=== PATIENT | female | born 1955 | race Caucasian/White ===

== ENCOUNTER 2020-05-26 08:45 | Day surgery (SDC) | payer BC ==
[~2020-05-26 08:45] MED LIST: Cefuroxime 10 MG/ML SYRINGE EYERT SCH; Lidocaine 1% PF 2 ML SDV INJECT SCH; Pilocarpine 4% Ophth Soln 15 ML Bot EYERT SCH
[2020-05-26] MEDS: Polymyxin B/Trimethoprim 10 ML Bottle EYERT SCH ×3 (09:23→11:11)
[2020-05-26] MEDS: Brimonidine 0.2% Ophth Soln 5 ML Bottle EYERT SCH ×3 (09:30→11:10)
[2020-05-26] MEDS: Phenylephrine 2.5% Ophth Soln 15 ML Bot EYERT SCH ×5 (09:35→10:45)
[2020-05-26] MEDS: Tropicamide 1% Ophth Soln 15 ML Bottle EYERT SCH ×4 (09:40→10:29)
--- NOTE | 2020-05-26 10:05 | PCM.PREANE ---
Preanesthetic Assessment - Procedure Proposed Procedure: Right eye cataract extraction with IOL - Anesthesia/Transfusion/Family Hx Anesthesia History: Prior Anesthesia Without Reaction Family History of Anesthesia Reaction: No Transfusion History: No Prior Transfusion(s) - Review of Systems General: No Symptoms Pulmonary: No Symptoms Cardiovascular: Dyspnea on Exertion Gastrointestinal: No Symptoms Neurological: No Symptoms Other: Reports: Easy Bleeding, Easy Bruising - Physical Assessment NPO Status Date: 05/25/20 NPO Status Time: 00:00 Vital Signs: Last Vital Signs Temp 36.7 C 05/26/20 09:10 Pulse 71 05/26/20 09:10 Resp 16 05/26/20 09:10 BP 141/80 H 05/26/20 09:10 Pulse Ox 96 05/26/20 09:10 Height: 1.6 m Weight: 81.647 kg ASA Class: 2 Mental Status: Alert & Oriented x3 Airway Class: Mallampati = 1 Dentition: Reports: Normal Dentition, Tappen(s) Thyro-Mental Finger Breadths: 3 Mouth Opening Finger Breadths: 3 ROM/Head Extension: Full Lungs: Clear to Auscultation, Normal Respiratory Effort Cardiovascular: Regular Rate, Regular Rhythm - Allergies Allergies/Adverse Reactions: Allergies Allergy/AdvReac Type Severity Reaction Status Date / Time No Known Allergies Allergy Verified 05/25/20 10:06 - Blood Blood Available: No Product(s) Available: None - Anesthesia Plan Pre-Op Medication Ordered: None - Acknowledgements Anesthesia Type Planned: MAC Pt an Appropriate Candidate for the Planned Anesthesia: Yes Alternatives and Risks of Anesthesia Discussed w Pt/Guardian: Yes Pt/Guardian Understands and Agrees with Anesthesia Plan: Yes PreAnesthesia Questionnaire - SUBSTANCE USE Tobacco Use Status *Q: Never Tobacco User Tobacco Use Within Last Twelve Months: No Second Hand Smoke Exposure: No Days Per Week of Alcohol Use: 1 Number of Drinks Per Day: 0 Total Drinks Per Week: 0 Recreational Drug Use History: No - HOME MEDS Home Medications: Home Meds Calcium Carb, Citrate/Vit D3 [Calcium + D3 ER Tablet] 1 tab PO DAILY 05/25/20 [History] Multivitamin [Daily-Asia] 1 tab PO DAILY 05/25/20 [History] Rosuvastatin [Crestor] 10 mg PO DAILY 05/25/20 [History] Vit C/E/Zn/Coppr/Lutein/Zeaxan [Preservision Areds 2 Softgel] 1 cap PO DAILY 05/25/20 [History] lisinopriL [Lisinopril] 10 mg PO DAILY 05/25/20 [History] - CURRENT (IN HOUSE) MEDS Current Meds: Current Medications Brimonidine Tartrate (Alphagan 0.2% Ophth Soln) 0 ml EYERT ASDIRECTED JASWANT Stop: 05/26/20 18:00 Last Admin: 05/26/20 09:30 Dose: 1 drop Documented by: Cefuroxime Sodium (Zinacef) 0 mg EYERT ASDIRECTED JASWANT Stop: 05/26/20 18:00 Lidocaine HCl (Xylocaine-Mpf 1%) 0 ml INJECT ASDIRECTED JASWANT Stop: 05/26/20 18:00 Phenylephrine HCl (Wallace-Synephrine 2.5% Ophth Soln) 0 ml EYERT ASDIRECTED JASWANT Stop: 05/26/20 18:00 Last Admin: 05/26/20 09:50 Dose: 1 drop Documented by: Pilocarpine HCl (Pilocar 4% Ophth Soln) 0 ml EYERT ASDIRECTED JASWANT Stop: 05/26/20 18:00 Polymyxin/Trimethoprim Sulfate (Polytrim Ophth Soln) 0 ml EYERT ASDIRECTED JASWANT Stop: 05/26/20 18:00 Last Admin: 05/26/20 09:23 Dose: 1 drop Documented by: Tetracaine HCl (Tetracaine 0.5% Steri-Unit Irma) 0 ml EYEBOTH ASDIRECTED JASWANT Stop: 05/26/20 18:00 Tropicamide (Mydriacyl 1% Ophth Soln) 0 ml EYERT ASDIRECTED JASWANT Stop: 05/26/20 18:00 Last Admin: 05/26/20 09:55 Dose: 1 drop Documented by:
[2020-05-26] MEDS: Tetracaine HCl/PF 0.5% 4 ML Bottle EYEBOTH SCH ×2 (10:38→11:55)
--- NOTE | 2020-05-26 11:01 | PCM48HPAN ---
Post Anesthesia Note - EVALUATION WITHIN 48HRS OF ANESTHETIC Vital Signs: Last Vital Signs Temp 36.7 C 05/26/20 09:10 Pulse 71 05/26/20 09:10 Resp 16 05/26/20 09:10 BP 141/80 H 05/26/20 09:10 Pulse Ox 96 05/26/20 09:10
--- NOTE | 2020-05-26 11:09 | PCM48HPAN ---
Post Anesthesia Note - EVALUATION WITHIN 48HRS OF ANESTHETIC Vital Signs in Normal Range: Yes Patient Participated in Evaluation: Yes Respiratory Function Stable: Yes Airway Patent: Yes Cardiovascular Function Stable: Yes Hydration Status Stable: Yes Pain Control Satisfactory: Yes Nausea and Vomiting Control Satisfactory: Yes Mental Status Recovered: Yes Vital Signs: Last Vital Signs Temp 36.7 C 05/26/20 09:10 Pulse 71 05/26/20 09:10 Resp 16 05/26/20 09:10 BP 141/80 H 05/26/20 09:10 Pulse Ox 96 05/26/20 09:10
== END 2020-05-26 11:24 | disposition home or self-care (01) ==
LOC: JD.SDS 08:45
PROVIDERS: ATTEND Ophthalmology
DX: H25.811 Combined forms of age-related cataract, right eye (principal); E78.00 Pure hypercholesterolemia, unspecified; H31.091 Other chorioretinal scars, right eye; S05.72XA Avulsion of left eye, initial encounter; H02.834 Dermatochalasis of left upper eyelid; H02.831 Dermatochalasis of right upper eyelid; H16.103 Unspecified superficial keratitis, bilateral; H16.223 Keratoconjunctivitis sicca, not specified as Sjogren's, bilateral; Z79.899 Other long term (current) drug therapy
CPT/HCPCS: 66984; C1780; J0697; J2001

== ENCOUNTER 2021-01-28 17:01 | Emergency (ER) | payer BC ==
--- NOTE | 2021-01-28 18:31 | EDM.PDOC ---
<Rip Hall Naty - Last Filed: 01/28/21 19:50> ED HPI GENERAL MEDICAL PROBLEM - General Chief Complaint: Respiratory Problem Stated Complaint: COUGH Time Seen by Provider: 01/28/21 18:30 Source of Information: Reports: Patient, RN Notes Reviewed - History of Present Illness INITIAL COMMENTS - FREE TEXT/NARRATIVE: 65 yr old female with onset of cough, chills, low grade fever about 5 days ago. The cough has worsened over the last few days and now becoming more short of breath. Has had myalgias, mild diarrhea. Cough has been nonproductive. She has not been vaccinated. no known underlying conditions. No one else currently ill at home. Does not smoke. - Related Data Allergies Allergy/AdvReac Type Severity Reaction Status Date / Time No Known Allergies Allergy Verified 05/25/20 10:06 Home Meds: Home Meds Rosuvastatin [Crestor] 20 mg PO DAILY 05/25/20 [History] lisinopriL [Lisinopril] 10 mg PO DAILY 05/25/20 [History] Past Medical History HEENT History: Reports: Cataract Cardiovascular History: Reports: High Cholesterol, Hypertension Social & Family History - Tobacco Use Tobacco Use Status *Q: Never Tobacco User Second Hand Smoke Exposure: No - Caffeine Use Caffeine Use: Reports: None - Recreational Drug Use Recreational Drug Use: No ED ROS GENERAL - Review of Systems Review Of Systems: See Below Constitutional: Reports: Fever, Chills HEENT: Reports: Rhinitis Respiratory: Reports: Shortness of Breath, Cough Endocrine: Reports: Fatigue GI/Abdominal: Reports: Diarrhea, Decreased Appetite. Denies: Abdominal Pain, Nausea, Vomiting Musculoskeletal: Reports: Other (generalized achiness) Skin: Denies: Rash Neurological: Reports: Dizziness ED EXAM, GENERAL - Physical Exam Exam: See Below General Appearance: Alert, Mild Distress Head: Atraumatic Neck: Supple Respiratory/Chest: No Respiratory Distress, Lungs Clear, Normal Breath Sounds. No: Rhonchi, Wheezing Cardiovascular: Regular Rate, Rhythm Back Exam: No: CVA Tenderness (L), CVA Tenderness (R) Neurological: Alert, Oriented, No Motor/Sensory Deficits Skin Exam: Warm, Dry, Normal Color, No Rash Course - Re-Assessments/Exams Free Text/Narrative Re-Assessment/Exam: 01/28/21 19:42 CXR shows mild bilat infiltrate compatable with covid. Covid screen has come back positive. ABG's confirm hypoxia with p02 of 57. Remainder of labs pending. It is well after change of shift. Will transfer care to Dr Calix. She is now on oxygen at 2 L NC and sats currently 92 -94 %. Departure - Departure Disposition: Home, Self-Care 01 Clinical Impression: COVID-19, Pneumonia due to COVID-19 virus, Hypoxia - Discharge Information Referrals: Eduarda Marin, [facility] [Primary Care Provider] - 1 Week Forms: ED Department Discharge Additional Instructions: Wear the oxygen at 2L continuously. Take the dexamethasone 1.5pill daily until gone. Take tylenol or motrin for any fever. Drink plenty of fluids. Follow up with Eduarda Marin within a week. Please return if you are worse. <Girish Calix - Last Filed: 01/29/21 02:02> #1 Interpretation EKG Date: 01/28/21 Time: 19:06 Rhythm: NSR Rate (Beats/Min): 81 Duncan: Normal P-Wave: Enlarged (LAE) QRS: Normal ST-T: Normal QT: Normal Comparison: NA - No Prior EKG Course - Re-Assessments/Exams Free Text/Narrative Re-Assessment/Exam: 01/28/21 20:[address] Hall for change of shift. I agree with his history and physical examination as documented. As above, the patient's swab for the SARS-CoV-2 virus has returned positive. She is hypoxemic, with a history suggesting symptomatic illness for approximately 5 or 6 days. This would qualify her for both dexamethasone and remdesivir, although not Regen-Cov. I have ordered these. Due to the patient's hypoxemia, the patient will need to be admitted to the hospital. Notified by Honey GARCIA that we do not have any beds available at this facility. I will wait until all of her labs have returned before calling [facility]. 01/28/21 22:13 Test results discussed with the patient. Her CBC is remarkable for leukopenia of 3.65, and a modestly depressed H/H at 9.9/30.3, with remainder of her CBC being unremarkable. Her CMP is remarkable for mild hyponatremia of 133, a BUN/Cr elevated at 29/1.8, and mild hyperglycemia of 115, with remainder of her CMP being unremarkable. Her CRP is mildly elevated at 2.1. Her troponin is undetectably low. Her pro-BNP is within normal limits at 84. Her ABG demonstrates a primary respiratory alkalosis with secondary metabolic acidosis and additional metabolic alkalosis. View of prior labs finds that the patient's BUN/Cr were 24/1.1 on 06/07/2020. Because of the patient's hypoxemia, I am recommending admission to the hospital. Unfortunately, there are no beds available at this facility. We will endeavor to find a bed at an outside facility. The patient is agreeable. 01/28/21 23:21 Called by Rosa at [facility] at 23:19. They have been extremely busy, and noted that [facility] is on diversion. She believes that they can accept the patient, however, she will need to make some arrangements. She will call us back in an hour. 01/29/21 01:40 Notified by Honey GARCIA that Rosa called back and informed her that, unfortunately, they are unable to accept the patient tonight. They are hoping to have some bed availability tomorrow. We contacted [facility] to see if they might have a bed available, and, unfortunately, they do not. 01/29/21 02:04 If the patient required an ICU bed, then I would begin looking for a bed wherever we could find one, however, the patient does not require an ICU bed; she only needs a general medical bed at this time. Given the high cost of flying, I do not believe that it would be prudent to fly the patient. I discussed this with the patient, and she agrees. The plan will be to keep the patient here in the ED tonight and look for bed availability in the morning. Departure - Discharge Information *PRESCRIPTION DRUG MONITORING PROGRAM REVIEWED*: Not Applicable *COPY OF PRESCRIPTION DRUG MONITORING REPORT IN PATIENT CATHERINE: Not Applicable <Sami Workman - Last Filed: 01/29/21 09:29> Course - Vital Signs Last Recorded V/S: Last Vital Signs Temp 98.1 F 01/28/21 18:24 Pulse 85 01/28/21 18:24 Resp 20 01/28/21 18:24 BP 115/61 01/28/21 18:24 Pulse Ox 90 L 01/28/21 18:24 - Orders/Labs/Meds Orders: Active Orders 24 hr Category Date Time Status Peripheral IV Care [RC] . DIRECTED Care 01/28/21 18:51 Active Sodium Chloride 0.9% [Saline Flush] Med 01/28/21 18:51 Active 10 ml FLUSH ASDIRECTED PRN Peripheral IV Insertion Adult [OM.PC] Stat Oth 01/28/21 18:51 Ordered Medication Orders Sodium Chloride (Sodium Chloride 0.9% 10 Ml Syringe) 10 ml FLUSH ASDIRECTED PRN PRN Reason: Keep Vein Open Last Admin: 01/28/21 20:18 Dose: 10 ml Documented by: FIDEL Labs: Laboratory Tests 01/28/21 01/28/21 01/28/21 Range/Units 18:20 18:50 20:00 WBC (3.98-10.04) K/mm3 RBC (3.98-5.22) M/mm3 Hgb (11.2-15.7) gm/dl Hct (34.1-44.9) % MCV (79.4-94.8) fl MCH (25.6-32.2) pg MCHC (32.2-35.5) g/dl RDW Std Deviation (36.4-46.3) fL Plt Count (182-369) K/mm3 MPV (9.4-12.3) fl Neut % (Auto) (34.0-71.1) % Lymph % (Auto) (19.3-51.7) % Billings % (Auto) (4.7-12.5) % Eos % (Auto) (0.7-5.8) Baso % (Auto) (0.1-1.2) % Neut # (Auto) (1.56-6.13) K/mm3 Lymph # (Auto) (1.18-3.74) K/mm3 Billings # (Auto) (0.24-0.36) K/mm3 Eos # (Auto) (0.04-0.36) K/mm3 Baso # (Auto) (0.01-0.08) K/mm3 Puncture Site Lt radial ABG pH 7.42 (7.35-7.45) ABG pCO2 30.1 L (35.0-45.0) mmHg ABG pO2 57.0 L (80.0-100.0) mmHg ABG HCO3 19.2 L (22.0-26.0) meq/L ABG O2 Saturation 85.5 L (96.0-97.0) % ABG Base Excess -4.0 L (-2-2.0) Andrew Test Positive O2 Delivery Device Room air Oxygen Flow Rate 0.0 Sodium (136-145) mEq/L Potassium (3.5-5.1) mEq/L Chloride (98-107) mEq/L Carbon Dioxide (21-32) mEq/L Anion Gap (5-15) BUN (7-18) mg/dL Creatinine (0.55-1.02) mg/dL Est Cr Clr Drug Dosing mL/min Estimated GFR (MDRD) (>60) mL/min BUN/Creatinine Ratio (14-18) Glucose (70-99) mg/dL Calcium (8.5-10.1) mg/dL Total Bilirubin (0.2-1.0) mg/dL AST (15-37) U/L ALT (14-59) U/L Alkaline Phosphatase (46-116) U/L Troponin I (0.00-0.056) ng/mL C-Reactive Protein 2.1 H* (<1.0) mg/dL NT-Pro-B Natriuret Pep (0-125) pg/mL Total Protein (6.4-8.2) g/dl Albumin (3.4-5.0) g/dl Globulin gm/dL Albumin/Globulin Ratio (1-2) SARS-CoV-2 RNA (HANK) Positive H (NEGATIVE) 01/28/21 01/28/21 01/28/21 Range/Units 20:00 20:00 20:00 WBC 3.65 L (3.98-10.04) K/mm3 RBC 3.60 L (3.98-5.22) M/mm3 Hgb 9.9 L D (11.2-15.7) gm/dl Hct 30.3 L (34.1-44.9) % MCV 84.2 D (79.4-94.8) fl MCH 27.5 (25.6-32.2) pg MCHC 32.7 (32.2-35.5) g/dl RDW Std Deviation 42.4 (36.4-46.3) fL Plt Count 214 D (182-369) K/mm3 MPV 9.3 L (9.4-12.3) fl Neut % (Auto) 79.9 H (34.0-71.1) % Lymph % (Auto) 14.0 L (19.3-51.7) % Billings % (Auto) 5.8 (4.7-12.5) % Eos % (Auto) 0 L (0.7-5.8) Baso % (Auto) 0.3 (0.1-1.2) % Neut # (Auto) 2.92 (1.56-6.13) K/mm3 Lymph # (Auto) 0.51 L (1.18-3.74) K/mm3 Billings # (Auto) 0.21 L (0.24-0.36) K/mm3 Eos # (Auto) 0.00 L (0.04-0.36) K/mm3 Baso # (Auto) 0.01 (0.01-0.08) K/mm3 Puncture Site ABG pH (7.35-7.45) ABG pCO2 (35.0-45.0) mmHg ABG pO2 (80.0-100.0) mmHg ABG HCO3 (22.0-26.0) meq/L ABG O2 Saturation (96.0-97.0) % ABG Base Excess (-2-2.0) Andrew Test O2 Delivery Device Oxygen Flow Rate Sodium 133 L D (136-145) mEq/L Potassium 4.2 (3.5-5.1) mEq/L Chloride 97 L (98-107) mEq/L Carbon Dioxide 24 (21-32) mEq/L Anion Gap 16.2 H (5-15) BUN 29 H (7-18) mg/dL Creatinine 1.8 H (0.55-1.02) mg/dL Est Cr Clr Drug Dosing 26.46 mL/min Estimated GFR (MDRD) 28 (>60) mL/min BUN/Creatinine Ratio 16.1 (14-18) Glucose 115 H (70-99) mg/dL Calcium 8.6 (8.5-10.1) mg/dL Total Bilirubin 0.5 (0.2-1.0) mg/dL AST 43 H (15-37) U/L ALT 51 (14-59) U/L Alkaline Phosphatase 54 (46-116) U/L Troponin I < 0.017 (0.00-0.056) ng/mL C-Reactive Protein (<1.0) mg/dL NT-Pro-B Natriuret Pep 84 (0-125) pg/mL Total Protein 7.7 (6.4-8.2) g/dl Albumin 3.2 L (3.4-5.0) g/dl Globulin 4.5 gm/dL Albumin/Globulin Ratio 0.7 L (1-2) SARS-CoV-2 RNA (HANK) (NEGATIVE) Meds: Medications Generic Name Dose Route Start Last Admin Trade Name Freq PRN Reason Stop Dose Admin Sodium Chloride 10 ml 01/28/21 18:51 01/28/21 20:18 Sodium Chloride 0.9% 10 Ml Syringe FLUSH 10 ml ASDIRECTED PRN Administration Keep Vein Open Discontinued Medications Generic Name Dose Route Start Last Admin Trade Name Freq PRN Reason Stop Dose Admin Dexamethasone 6 mg 01/28/21 19:56 01/28/21 20:17 Dexamethasone 10 Mg/Ml Sdv IVPUSH 01/28/21 19:57 6 mg ONETIME STA Administration Remdesivir 200 mg/ Sodium 250 mls @ 250 mls/hr 01/28/21 19:57 01/28/21 20:18 Chloride IV 01/28/21 19:58 250 mls/hr ONETIME ONE Administration - Re-Assessments/Exams Free Text/Narrative Re-Assessment/Exam: 01/29/21 09:[address] Calix who took over for Dr Hall. The patient says she feels better. She has been doing good on 2L of oxygen. 01/29/21 09:24 We have no beds available here. [facility] has no availability until later today. I talked to the patient about the possibility of going home with home oxygen and oral steroids. She would like to try that. I have ordered the oxygen. I will sent a prescription for dexamethasone to [facility]. Departure - Departure Time of Disposition: 09:30 Condition: Good
[2021-01-28] MEDS ORDERED: Sodium Chloride 0.9% 10 ML Syringe FLUSH PRN (18:51)
[2021-01-28] MEDS ORDERED: Dexamethasone 10 MG/ML SDV IVPUSH STA (19:56)
[2021-01-28] MEDS ORDERED: REMDESIVIR 200 MG in Sodium Chloride 0.9% 250 ML IV ONE (19:57)
--- NOTE | 2021-01-28 20:27 | CR ---
Chest: Portable view of the chest was obtained. Comparison: Prior chest x-ray of 06/07/20. Patchy areas of increased density are seen within the left upper lung and left lower lung as well as within the right lower lung. Heart size and mediastinum are within normal limits for portable technique. Bony structures show nothing acute. Impression: 1. Patchy areas of increased density within both sides of the chest. Findings are suspicious for COVID pneumonia. Please correlate. Diagnostic code #3
== END 2021-01-29 10:04 | disposition home or self-care (01) ==
LOC: JD.ED 17:01
DX: U07.1 COVID-19 (principal); J12.82 Pneumonia due to coronavirus disease 2019; R09.02 Hypoxemia; I10 Essential (primary) hypertension
CPT/HCPCS: 36415; 36600; 71045; 80053; 82803; 83880; 84484; 85025; 86140; 87635; 93005; 96374; 99285; J1100; J7050; U0002

== ENCOUNTER 2021-02-01 13:51 | Inpatient (IN) | payer BC ==
--- NOTE | 2021-02-01 15:56 | CR ---
Chest: Frontal view of the chest was obtained. Comparison: Prior chest x-ray of 01/28/21. Patchy areas of increased density are seen within both lungs. Findings are stable from prior chest x-ray. Heart size and mediastinum are within normal limits. Bony structures show mild degenerative spurring within the spine. Impression: 1. Stable chest x-ray from prior study of 01/28/21. Diagnostic code #3
--- NOTE | 2021-02-01 16:42 | EDM.PDOC ---
ED HPI GENERAL MEDICAL PROBLEM - General Chief Complaint: Respiratory Problem Stated Complaint: COVID+ Time Seen by Provider: 02/01/21 14:41 Source of Information: Reports: Patient History Limitations: Reports: No Limitations - History of Present Illness INITIAL COMMENTS - FREE TEXT/NARRATIVE: The patient presents with shortness of breath, cough, and generalized weakness. She started having symptoms 9 days ago and she was seen here Saturday night was going to be admitted but there were no beds. The next morning she felt a little better and wanted to try to go home with home oxygen. She was given dexamethasone and remdesivir here. She went home on dexamethasone. She returns because her and her daughter are worried because she is not getting any better. She is able to eat and drink She has some diarrhea. She has no fever or chills. She does still cough. She has shortness of breath. She is not able to eat or drink much. Onset: Gradual Duration: Day(s): (9) Severity: Moderate Improves with: Reports: None Worsens with: Reports: None Associated Symptoms: Reports: Cough, Headaches, Nausea/Vomiting, Shortness of Breath. Denies: Chest Pain, Fever/Chills - Related Data Allergies Allergy/AdvReac Type Severity Reaction Status Date / Time No Known Allergies Allergy Verified 05/25/20 10:06 Home Meds: Home Meds Rosuvastatin [Crestor] 20 mg PO DAILY 05/25/20 [History] lisinopriL [Lisinopril] 10 mg PO DAILY 05/25/20 [History] dexAMETHasone [Dexamethasone] 6 mg PO Q6H #12 tab 01/29/21 [Rx] Past Medical History HEENT History: Reports: Cataract Cardiovascular History: Reports: High Cholesterol, Hypertension - Infectious Disease History Infectious Disease History: Reports: Novel Coronavirus Social & Family History - Tobacco Use Tobacco Use Status *Q: Never Tobacco User - Caffeine Use Caffeine Use: Reports: Coffee, Tea - Recreational Drug Use Recreational Drug Use: No ED ROS GENERAL - Review of Systems Review Of Systems: See Below Constitutional: Reports: Malaise, Weakness, Fatigue. Denies: Fever, Chills HEENT: Reports: No Symptoms Respiratory: Reports: Shortness of Breath, Cough Cardiovascular: Reports: No Symptoms Endocrine: Reports: No Symptoms GI/Abdominal: Reports: No Symptoms : Reports: No Symptoms Musculoskeletal: Reports: No Symptoms Skin: Reports: No Symptoms ED EXAM, GENERAL - Physical Exam Exam: See Below Exam Limited By: No Limitations General Appearance: Alert, No Apparent Distress Ears: Normal External Exam Nose: Normal Inspection Head: Atraumatic, Normocephalic Neck: Normal Inspection Respiratory/Chest: No Respiratory Distress, Decreased Breath Sounds Cardiovascular: Regular Rate, Rhythm, No Edema, No Murmur GI/Abdominal: Soft, Non-Tender, No Organomegaly, No Mass Back Exam: Normal Inspection Extremities: Normal Inspection Course - Vital Signs Last Recorded V/S: Last Vital Signs Temp 96.2 F L 02/01/21 14:50 Pulse 73 02/01/21 14:50 Resp 20 02/01/21 14:50 BP 113/68 02/01/21 14:50 Pulse Ox 96 02/01/21 14:50 - Orders/Labs/Meds Orders: Active Orders 24 hr Category Date Time Status Cardiac Monitoring [RC] . DIRECTED Care 02/01/21 15:14 Active Oxygen Therapy [RC] PRN Care 02/01/21 15:14 Active Peripheral IV Care [RC] . DIRECTED Care 02/01/21 17:28 Active RT Aerosol Therapy [RC] ASDIRECTED Care 02/01/21 17:30 Active Sodium Chloride 0.9% [Normal Saline] 1,000 ml Med 02/01/21 17:27 Active IV .BOLUS Sodium Chloride 0.9% [Saline Flush] Med 02/01/21 17:27 Active 10 ml FLUSH ASDIRECTED PRN Peripheral IV Insertion Adult [OM.PC] Stat Oth 02/01/21 17:27 Ordered Medication Orders Sodium Chloride (Normal Saline) 1,000 mls @ 1,000 mls/hr IV .BOLUS STA Stop: 02/01/21 18:26 Sodium Chloride (Sodium Chloride 0.9% 10 Ml Syringe) 10 ml FLUSH ASDIRECTED PRN PRN Reason: Keep Vein Open Labs: Laboratory Tests 02/01/21 02/01/21 02/01/21 Range/Units 15:28 15:28 15:28 WBC 8.40 (3.98-10.04) K/mm3 RBC 3.71 L (3.98-5.22) M/mm3 Hgb 10.4 L (11.2-15.7) gm/dl Hct 31.5 L (34.1-44.9) % MCV 84.9 (79.4-94.8) fl MCH 28.0 (25.6-32.2) pg MCHC 33.0 (32.2-35.5) g/dl RDW Std Deviation 41.9 (36.4-46.3) fL Plt Count 384 H D (182-369) K/mm3 MPV 9.3 L (9.4-12.3) fl Neut % (Auto) 87.6 H (34.0-71.1) % Lymph % (Auto) 6.2 L (19.3-51.7) % [place] % (Auto) 5.4 (4.7-12.5) % Eos % (Auto) 0 L (0.7-5.8) Baso % (Auto) 0.1 (0.1-1.2) % Neut # (Auto) 7.36 H (1.56-6.13) K/mm3 Lymph # (Auto) 0.52 L (1.18-3.74) K/mm3 [place] # (Auto) 0.45 H (0.24-0.36) K/mm3 Eos # (Auto) 0.00 L (0.04-0.36) K/mm3 Baso # (Auto) 0.01 (0.01-0.08) K/mm3 Manual Slide Review PT 10.0 (9.7-12.0) SECONDS INR < 0.93 APTT 24.5 (21.7-31.4) SECONDS D-Dimer, Quantitative 1.21 H (0.19-0.50) mg/L Sodium 139 (136-145) mEq/L Potassium 3.8 (3.5-5.1) mEq/L Chloride 105 (98-107) mEq/L Carbon Dioxide 24 (21-32) mEq/L Anion Gap 13.8 (5-15) BUN 43 H (7-18) mg/dL Creatinine 1.9 H (0.55-1.02) mg/dL Est Cr Clr Drug Dosing 25.07 mL/min Estimated GFR (MDRD) 27 (>60) mL/min BUN/Creatinine Ratio 22.6 H (14-18) Glucose 146 H (70-99) mg/dL Lactic Acid (0.4-2.0) mmol/L Calcium 8.7 (8.5-10.1) mg/dL Total Bilirubin 0.6 (0.2-1.0) mg/dL AST 65 H (15-37) U/L ALT 95 H (14-59) U/L Alkaline Phosphatase 63 (46-116) U/L Troponin I < 0.017 (0.00-0.056) ng/mL C-Reactive Protein 0.4 (<1.0) mg/dL NT-Pro-B Natriuret Pep (0-125) pg/mL Total Protein 7.5 (6.4-8.2) g/dl Albumin 3.0 L (3.4-5.0) g/dl Globulin 4.5 gm/dL Albumin/Globulin Ratio 0.7 L (1-2) 02/01/21 02/01/21 Range/Units 15:28 15:28 WBC (3.98-10.04) K/mm3 RBC (3.98-5.22) M/mm3 Hgb (11.2-15.7) gm/dl Hct (34.1-44.9) % MCV (79.4-94.8) fl MCH (25.6-32.2) pg MCHC (32.2-35.5) g/dl RDW Std Deviation (36.4-46.3) fL Plt Count (182-369) K/mm3 MPV (9.4-12.3) fl Neut % (Auto) (34.0-71.1) % Lymph % (Auto) (19.3-51.7) % [place] % (Auto) (4.7-12.5) % Eos % (Auto) (0.7-5.8) Baso % (Auto) (0.1-1.2) % Neut # (Auto) (1.56-6.13) K/mm3 Lymph # (Auto) (1.18-3.74) K/mm3 [place] # (Auto) (0.24-0.36) K/mm3 Eos # (Auto) (0.04-0.36) K/mm3 Baso # (Auto) (0.01-0.08) K/mm3 Manual Slide Review PT (9.7-12.0) SECONDS INR APTT (21.7-31.4) SECONDS D-Dimer, Quantitative (0.19-0.50) mg/L Sodium (136-145) mEq/L Potassium (3.5-5.1) mEq/L Chloride (98-107) mEq/L Carbon Dioxide (21-32) mEq/L Anion Gap (5-15) BUN (7-18) mg/dL Creatinine (0.55-1.02) mg/dL Est Cr Clr Drug Dosing mL/min Estimated GFR (MDRD) (>60) mL/min BUN/Creatinine Ratio (14-18) Glucose (70-99) mg/dL Lactic Acid 1.5 (0.4-2.0) mmol/L Calcium (8.5-10.1) mg/dL Total Bilirubin (0.2-1.0) mg/dL AST (15-37) U/L ALT (14-59) U/L Alkaline Phosphatase (46-116) U/L Troponin I (0.00-0.056) ng/mL C-Reactive Protein (<1.0) mg/dL NT-Pro-B Natriuret Pep 192 H (0-125) pg/mL Total Protein (6.4-8.2) g/dl Albumin (3.4-5.0) g/dl Globulin gm/dL Albumin/Globulin Ratio (1-2) Meds: Medications Generic Name Dose Route Start Last Admin Trade Name Freq PRN Reason Stop Dose Admin Sodium Chloride 1,000 mls @ 1,000 mls/hr 02/01/21 17:27 Normal Saline IV 02/01/21 18:26 .BOLUS STA Sodium Chloride 10 ml 02/01/21 17:27 Sodium Chloride 0.9% 10 Ml Syringe FLUSH ASDIRECTED PRN Keep Vein Open Discontinued Medications Generic Name Dose Route Start Last Admin Trade Name Freq PRN Reason Stop Dose Admin Albuterol/Ipratropium 3 ml 02/01/21 17:30 02/01/21 17:41 Albuterol/Ipratropium 3.0-0.5 Mg/3 Ml Neb Soln NEB 02/01/21 17:31 3 ml ONETIME ONE Administration - Re-Assessments/Exams Free Text/Narrative Re-Assessment/Exam: 02/01/21 16:43 I ordered a CXR and labs. Her CXR shows stable chest x-ray from prior study of 01/28/21. Her hgb is low at 10.4. Her D-dimer is elevated at 1.21. Her creatinine was elevated at 1.9. Four days ago it was 1.8. She has been as high as 1.3 before. Her GFR was low at 27. Her glucose is 146. Her lactic acid is normal. Her AST is 65. Her ALT is elevated at 95. Her troponin is negative. Her CRP is normal Her BNP was slightly elevated at 192. 02/01/21 17:43 I feel she needs to be admitted. At home she was up to 3L. I ordered an IV NS 500ml bolus and 125ml/hr after that. I called Dr Murphy and he agreed to the admission. Departure - Departure Time of Disposition: 17:00 Disposition: Admitted As Inpatient 68 Condition: Fair Clinical Impression: COVID-19, Hypoxia, Pneumonia due to COVID-19 virus - Discharge Information Referrals: Eduarda Marin, ALARM MECHANISM ADJUSTER [Primary Care Provider] - Forms: ED Department Discharge Sepsis Event Note (ED) - Focused Exam Vital Signs: Vital Signs Temp Pulse Resp BP Pulse Ox 02/01/21 14:50 96.2 F L 73 20 113/68 96 - My Orders Last 24 Hours: My Active Orders 02/01/21 15:14 Cardiac Monitoring [RC] . DIRECTED Oxygen Therapy [RC] PRN 02/01/21 17:27 Sodium Chloride 0.9% [Normal Saline] 1,000 ml IV .BOLUS Sodium Chloride 0.9% [Saline Flush] 10 ml FLUSH ASDIRECTED PRN Peripheral IV Insertion Adult [OM.PC] Stat 02/01/21 17:28 Peripheral IV Care [RC] . DIRECTED 02/01/21 17:30 RT Aerosol Therapy [RC] ASDIRECTED - Assessment/Plan Last 24 Hours: My Active Orders 02/01/21 15:14 Cardiac Monitoring [RC] . DIRECTED Oxygen Therapy [RC] PRN 02/01/21 17:27 Sodium Chloride 0.9% [Normal Saline] 1,000 ml IV .BOLUS Sodium Chloride 0.9% [Saline Flush] 10 ml FLUSH ASDIRECTED PRN Peripheral IV Insertion Adult [OM.PC] Stat 02/01/21 17:28 Peripheral IV Care [RC] . DIRECTED 02/01/21 17:30 RT Aerosol Therapy [RC] ASDIRECTED
[2021-02-01] MEDS ORDERED: Sodium Chloride 0.9% 10 ML Syringe FLUSH PRN (17:27)
[2021-02-01] MEDS ORDERED: Sodium Chloride 0.9% 1,000 ML IV STA (17:27)
[2021-02-01] MEDS ORDERED: Albuterol/Ipratropium 3.0-0.5 MG/3 ML Neb Soln NEB ONE (17:30)
[2021-02-01] MEDS ORDERED: Ondansetron 4 MG/2 ML SDV IV PRN (20:06)
[2021-02-01] MEDS ORDERED: Acetaminophen 325 MG Tab PO PRN (20:06)
--- NOTE | 2021-02-01 20:11 | PCM.HP.2 ---
H&P History of Present Illness - General Date of Service: 02/01/21 Admit Problem/Dx: Admission Diagnosis/Problem Admission Diagnosis/Problem Pneumonia - History of Present Illness Initial Comments - Free Text/Narative: 65-year-old female with increasing shortness of breath, cough, and generalized weakness over the last 9 days. She states that on Saturday she was seen in the emergency department and there were no beds available in the hospital. The next day she did feel a little bit better and went went home on oxygen from the emergency department. She was given dexamethasone and remdesivir in the emergen cy department. She went home on dexamethasone and O2 and today return to the emergency department at the urging of her daughter for recheck. It was noted that her renal function did worsen since Saturday and her GFR is now 27 with a creatinine of 1.9. Patient was given 1 L in the IV, but unfortunately she did not get the whole liter because of infiltration of the IV, per patient. She has decreased appetite. She denies any fever or chills. She has a history of hypertension and is on an ELICIA inhibitor. - Related Data Allergies/Adverse Reactions: Allergies Allergy/AdvReac Type Severity Reaction Status Date / Time No Known Allergies Allergy Verified 02/01/21 20:06 Home Medications: Home Meds Rosuvastatin [Crestor] 20 mg PO DAILY 05/25/20 [History] lisinopriL [Lisinopril] 10 mg PO DAILY 05/25/20 [History] Mineral Oil/Petrolatum,White [Systane Nighttime Eye Ointment] 1 applic EYELF BID 02/01/21 [History] dexAMETHasone [Dexamethasone] 6 mg PO DAILY 02/01/21 [History] Past Medical History HEENT History: Reports: Cataract Cardiovascular History: Reports: High Cholesterol, Hypertension - Infectious Disease History Infectious Disease History: Reports: Novel Coronavirus Social & Family History - Tobacco Use Tobacco Use Status *Q: Never Tobacco User - Caffeine Use Caffeine Use: Reports: Coffee, Tea - Recreational Drug Use Recreational Drug Use: No H&P Review of Systems - Review of Systems: Review Of Systems: Comprehensive ROS is negative, except as noted in HPI. Exam - Exam Exam: See Below - Vital Signs Vital Signs: Last Vital Signs Temp 98.2 F 02/01/21 19:02 Pulse 70 02/01/21 19:02 Resp 14 02/01/21 19:02 BP 115/91 H 02/01/21 19:02 Pulse Ox 93 L 02/01/21 19:02 Weight: 161 lb 11.2 oz - Exam Quality Assessment: Supplemental Oxygen (2 L via nasal cannula) General: Alert, Oriented, 4 HEENT: Conjunctiva Clear, Hearing Intact, Mucosa Moist & [place] Neck: Supple, Trachea Midline, 2 Lungs: Crackles (Bibasilar rales). No: Normal Respiratory Effort (Mild increase in effort) Cardiovascular: Regular Rate, Regular Rhythm GI/Abdominal Exam: Normal Bowel Sounds, Soft, Non-Tender, No Organomegaly, No Distention, No Abnormal Bruit, No Mass Extremities: Normal Inspection, Normal Range of Motion, Non-Tender, No Pedal Edema, Normal Capillary Refill Skin: Warm, Dry, Intact Neuro Extensive - Mental Status: Alert, Oriented x3, Normal Mood/Affect, Normal Cognition, Memory Intact Neuro Extensive - Motor, Sensory, Reflexes: CN II-XII Intact Psychiatric: Alert, Normal Affect, Normal Mood - Patient Data Lab Results Last 24 hrs: Laboratory Results - last 24 hr 02/01/21 02/01/21 02/01/21 Range/Units 15:28 15:28 15:28 WBC 8.40 (3.98-10.04) K/mm3 RBC 3.71 L (3.98-5.22) M/mm3 Hgb 10.4 L (11.2-15.7) gm/dl Hct 31.5 L (34.1-44.9) % MCV 84.9 (79.4-94.8) fl MCH 28.0 (25.6-32.2) pg MCHC 33.0 (32.2-35.5) g/dl RDW Std Deviation 41.9 (36.4-46.3) fL Plt Count 384 H D (182-369) K/mm3 MPV 9.3 L (9.4-12.3) fl Neut % (Auto) 87.6 H (34.0-71.1) % Lymph % (Auto) 6.2 L (19.3-51.7) % [place] % (Auto) 5.4 (4.7-12.5) % Eos % (Auto) 0 L (0.7-5.8) Baso % (Auto) 0.1 (0.1-1.2) % Neut # (Auto) 7.36 H (1.56-6.13) K/mm3 Lymph # (Auto) 0.52 L (1.18-3.74) K/mm3 [place] # (Auto) 0.45 H (0.24-0.36) K/mm3 Eos # (Auto) 0.00 L (0.04-0.36) K/mm3 Baso # (Auto) 0.01 (0.01-0.08) K/mm3 Manual Slide Review PT 10.0 (9.7-12.0) SECONDS INR < 0.93 APTT 24.5 (21.7-31.4) SECONDS D-Dimer, Quantitative 1.21 H (0.19-0.50) mg/L Sodium 139 (136-145) mEq/L Potassium 3.8 (3.5-5.1) mEq/L Chloride 105 (98-107) mEq/L Carbon Dioxide 24 (21-32) mEq/L Anion Gap 13.8 (5-15) BUN 43 H (7-18) mg/dL Creatinine 1.9 H (0.55-1.02) mg/dL Est Cr Clr Drug Dosing 25.07 mL/min Estimated GFR (MDRD) 27 (>60) mL/min BUN/Creatinine Ratio 22.6 H (14-18) Glucose 146 H (70-99) mg/dL Lactic Acid (0.4-2.0) mmol/L Calcium 8.7 (8.5-10.1) mg/dL Total Bilirubin 0.6 (0.2-1.0) mg/dL AST 65 H (15-37) U/L ALT 95 H (14-59) U/L Alkaline Phosphatase 63 (46-116) U/L Troponin I < 0.017 (0.00-0.056) ng/mL C-Reactive Protein 0.4 (<1.0) mg/dL NT-Pro-B Natriuret Pep (0-125) pg/mL Total Protein 7.5 (6.4-8.2) g/dl Albumin 3.0 L (3.4-5.0) g/dl Globulin 4.5 gm/dL Albumin/Globulin Ratio 0.7 L (1-2) 02/01/21 02/01/21 Range/Units 15:28 15:28 WBC (3.98-10.04) K/mm3 RBC (3.98-5.22) M/mm3 Hgb (11.2-15.7) gm/dl Hct (34.1-44.9) % MCV (79.4-94.8) fl MCH (25.6-32.2) pg MCHC (32.2-35.5) g/dl RDW Std Deviation (36.4-46.3) fL Plt Count (182-369) K/mm3 MPV (9.4-12.3) fl Neut % (Auto) (34.0-71.1) % Lymph % (Auto) (19.3-51.7) % [place] % (Auto) (4.7-12.5) % Eos % (Auto) (0.7-5.8) Baso % (Auto) (0.1-1.2) % Neut # (Auto) (1.56-6.13) K/mm3 Lymph # (Auto) (1.18-3.74) K/mm3 [place] # (Auto) (0.24-0.36) K/mm3 Eos # (Auto) (0.04-0.36) K/mm3 Baso # (Auto) (0.01-0.08) K/mm3 Manual Slide Review PT (9.7-12.0) SECONDS INR APTT (21.7-31.4) SECONDS D-Dimer, Quantitative (0.19-0.50) mg/L Sodium (136-145) mEq/L Potassium (3.5-5.1) mEq/L Chloride (98-107) mEq/L Carbon Dioxide (21-32) mEq/L Anion Gap (5-15) BUN (7-18) mg/dL Creatinine (0.55-1.02) mg/dL Est Cr Clr Drug Dosing mL/min Estimated GFR (MDRD) (>60) mL/min BUN/Creatinine Ratio (14-18) Glucose (70-99) mg/dL Lactic Acid 1.5 (0.4-2.0) mmol/L Calcium (8.5-10.1) mg/dL Total Bilirubin (0.2-1.0) mg/dL AST (15-37) U/L ALT (14-59) U/L Alkaline Phosphatase (46-116) U/L Troponin I (0.00-0.056) ng/mL C-Reactive Protein (<1.0) mg/dL NT-Pro-B Natriuret Pep 192 H (0-125) pg/mL Total Protein (6.4-8.2) g/dl Albumin (3.4-5.0) g/dl Globulin gm/dL Albumin/Globulin Ratio (1-2) Result Diagrams: 02/02/21 06:50 02/02/21 06:50 Sepsis Event Note - Focused Exam Vital Signs: Vital Signs Temp Temp Pulse Pulse Resp BP BP 02/01/21 19:02 98.2 F 70 14 115/91 H 02/01/21 17:30 71 111/54 L 02/01/21 17:15 72 118/69 02/01/21 17:00 71 107/67 02/01/21 16:45 70 104/60 02/01/21 16:30 69 108/64 02/01/21 16:15 69 109/61 02/01/21 16:00 69 111/64 02/01/21 15:45 72 119/77 02/01/21 15:30 74 114/80 02/01/21 15:00 71 117/71 02/01/21 14:55 02/01/21 14:50 96.2 F L 73 20 113/68 Pulse Ox Pulse Ox 02/01/21 19:02 93 L 02/01/21 17:30 93 L 98 02/01/21 17:15 95 02/01/21 17:00 94 L 02/01/21 16:45 93 L 02/01/21 16:30 94 L 02/01/21 16:15 94 L 02/01/21 16:00 92 L 02/01/21 15:45 93 L 02/01/21 15:30 95 02/01/21 15:00 96 02/01/21 14:55 96 02/01/21 14:50 96 - Problem List (1) Hypertension SNOMED Code(s): 19777812 ICD Code: I10 - ESSENTIAL (PRIMARY) HYPERTENSION Status: Acute Current Visit: Yes (2) Acute renal insufficiency SNOMED Code(s): 582481242 ICD Code: N28.9 - DISORDER OF KIDNEY AND URETER, UNSPECIFIED Status: Acute Current Visit: Yes (3) Pneumonia due to COVID-19 virus SNOMED Code(s): 718818710506376163 ICD Code: U07.1 - COVID-19; J12.82 - PNEUMONIA DUE TO CORONAVIRUS DISEASE 2019 Status: Acute Current Visit: Yes Problem List Initiated/Reviewed/Updated: Yes Orders Last 24hrs: Active Orders 24 hr Category Date Time Status Admission Status [Patient Status] [ADT] Routine ADT 02/01/21 17:54 Active Cardiac Monitoring [RC] . DIRECTED Care 02/01/21 15:14 Active Nurse Communication: Isolation [RC] ASDIRECTED Care 02/01/21 20:06 Ordered Oxygen Therapy [RC] PRN Care 02/01/21 15:14 Active Oxygen Therapy [RC] PRN Care 02/01/21 20:06 Ordered Positioning, Patient [RC] ASDIRECTED Care 02/01/21 20:08 Ordered RT Aerosol Therapy [RC] ASDIRECTED Care 02/01/21 17:30 Active RT Incentive Spirometry [RC] ASDIRECTED Care 02/01/21 20:06 Ordered Up ad Precious [RC] ASDIRECTED Care 02/01/21 20:06 Ordered VTE/DVT Education [RC] PER UNIT ROUTINE Care 02/01/21 20:06 Ordered Vital Signs [RC] Q4H Care 02/01/21 20:06 Ordered Regular Diet [DIET] Diet 02/01/21 Dinner Ordered C-REACTIVE PROTEIN [CHEM] AM Lab 02/02/21 05:11 Ordered CBC WITH AUTO DIFF [HEME] AM Lab 02/02/21 05:11 Ordered COMPREHENSIVE METABOLIC PN,CMP [CHEM] AM Lab 02/02/21 05:11 Ordered MAGNESIUM [CHEM] AM Lab 02/02/21 05:11 Ordered PHOSPHORUS [CHEM] AM Lab 02/02/21 05:11 Ordered PROCALCITONIN [REF] Routine Lab 02/01/21 20:06 Ordered Acetaminophen [TylenoL] Med 02/01/21 20:06 Ordered 650 mg PO Q4H PRN Enoxaparin [Lovenox] Med 02/02/21 09:00 Ordered 30 mg SUBCUT DAILY Lactated Ringers [Ringers, Lactated] 1,000 ml Med 02/01/21 20:15 Ordered IV ASDIRECTED Ondansetron [Zofran] Med 02/01/21 20:06 Ordered 4 mg IV Q6H PRN Rosuvastatin [Crestor] Med 02/02/21 09:00 Ordered 20 mg PO DAILY Sodium Chloride 0.9% [Saline Flush] Med 02/01/21 17:27 Active 10 ml FLUSH ASDIRECTED PRN dexAMETHasone Med 02/01/21 20:15 Ordered 6 mg PO DAILY Isolation [COMM] Stat Oth 02/01/21 20:06 Ordered Peripheral IV Insertion Adult [OM.PC] Stat Oth 02/01/21 17:27 Ordered RT Acapella [RESPCARE] Routine Oth 02/01/21 20:06 Ordered Resuscitation Status Routine Resus Stat 02/01/21 20:06 Ordered Medication Orders Sodium Chloride (Sodium Chloride 0.9% 10 Ml Syringe) 10 ml FLUSH ASDIRECTED PRN PRN Reason: Keep Vein Open Last Admin: 02/01/21 17:35 Dose: 10 ml Documented by: RUBA Assessment/Plan Comment:: 55-year-old female diagnosed with Covid 4 days ago and first developed symptoms 9 days ago return to the emerge department with shortness of breath, cough, and generalized weakness. COVID-19 pneumonia * Has been on 2 L nasal cannula at home since Saturday, 3 days prior to admission * Started on dexamethasone 4 days ago * Unable to give remdesivir secondary to renal function * Checks x-ray was stable from prior study on 01/28/2021. Consistent patchy areas of increased density seen within both lungs. * proBNP is mildly elevated at 192. Troponin is normal at less than 0.017. Elevated BNP is likely related to renal insufficiency. D-dimer 1.21 likely secondary to renal insufficiency Acute renal insufficiency * BUN 43, creatinine 1.9, estimated GFR 27 * Baseline creatinine 1.1 in June 2020 * Patient states she was started on lisinopril secondary to renal function last April Hypertension/hyperlipidemia * Home meds include lisinopril and rosuvastatin Plan * Admit to floor in isolation * FiO2 to keep SPO2 between 88 and 92% * Stop lisinopril * Continue rosuvastatin * No remdesivir secondary to renal function * Renally dose medications * Continue dexamethasone 6 mg daily * Encourage oral intake * LR at 75 mL/h for a total of 1000 mL * Follow CBC, CMP, mag, Phos, C-reactive protein, D-dimer * VTE prophylaxis with Lovenox. Pharmacy to dose renally * CODE STATUS: Full code - Mortality Measure Prognosis:: Good
[2021-02-01] MEDS ORDERED: Lactated Ringers 1,000 ML IV SCH (20:15)
[2021-02-01] MEDS: Dexamethasone 4 MG Tab PO SCH (20:46)
[2021-02-01] MEDS: LANOLIN EYELF SCH (22:30)
[2021-02-01] MEDS: MINERAL OIL EYELF SCH (22:30)
[2021-02-01] MEDS: PETROLATUM EYELF SCH (22:30)
[2021-02-02] MEDS ORDERED: Rosuvastatin 10 MG Tab PO SCH (09:00)
[2021-02-02] MEDS: Enoxaparin 30 MG/0.3 ML Syringe SUBCUT SCH (09:13)
[2021-02-02] MEDS: MINERAL OIL EYELF SCH ×2 (09:13→20:48)
[2021-02-02] MEDS: Dexamethasone 4 MG Tab PO SCH (09:13)
[2021-02-02] MEDS: PETROLATUM EYELF SCH ×2 (09:13→20:48)
[2021-02-02] MEDS: LANOLIN EYELF SCH ×2 (09:13→20:48)
--- NOTE | 2021-02-02 11:34 | PCM.PN ---
- General Info Date of Service: 02/02/21 Admission Dx/Problem (Free Text): Admission Diagnosis/Problem Admission Diagnosis/Problem Pneumonia Subjective Update: 55-year-old female admitted with COVID-19, day 10 of symptoms. Patient states that she is feeling better today. Continues to have cough and shortness of breath. Appetite is improved. Functional Status: Reports: Pain Controlled - Review of Systems General: Reports: No Symptoms HEENT: Reports: No Symptoms Pulmonary: Reports: Shortness of Breath, Cough Cardiovascular: Reports: No Symptoms Gastrointestinal: Reports: No Symptoms Musculoskeletal: Reports: No Symptoms - Patient Data Vitals - Most Recent: Last Vital Signs Temp 97.9 F 02/02/21 07:38 Pulse 70 02/02/21 07:38 Resp 24 H 02/02/21 07:38 BP 141/73 H 02/02/21 07:38 Pulse Ox 91 L 02/02/21 09:43 Weight - Most Recent: 162 lb 6.4 oz I&O - Last 24 Hours: Intake & Output 02/01/21 02/02/21 02/02/21 22:59 06:59 14:59 Intake Total 650 Balance 650 Lab Results Last 24 Hours: Laboratory Results - last 24 hr 02/01/21 02/01/21 02/01/21 Range/Units 15:28 15:28 15:28 WBC 8.40 (3.98-10.04) K/mm3 RBC 3.71 L (3.98-5.22) M/mm3 Hgb 10.4 L (11.2-15.7) gm/dl Hct 31.5 L (34.1-44.9) % MCV 84.9 (79.4-94.8) fl MCH 28.0 (25.6-32.2) pg MCHC 33.0 (32.2-35.5) g/dl RDW Std Deviation 41.9 (36.4-46.3) fL Plt Count 384 H D (182-369) K/mm3 MPV 9.3 L (9.4-12.3) fl Neut % (Auto) 87.6 H (34.0-71.1) % Lymph % (Auto) 6.2 L (19.3-51.7) % [place] % (Auto) 5.4 (4.7-12.5) % Eos % (Auto) 0 L (0.7-5.8) Baso % (Auto) 0.1 (0.1-1.2) % Neut # (Auto) 7.36 H (1.56-6.13) K/mm3 Lymph # (Auto) 0.52 L (1.18-3.74) K/mm3 [place] # (Auto) 0.45 H (0.24-0.36) K/mm3 Eos # (Auto) 0.00 L (0.04-0.36) K/mm3 Baso # (Auto) 0.01 (0.01-0.08) K/mm3 Manual Slide Review PT 10.0 (9.7-12.0) SECONDS INR < 0.93 APTT 24.5 (21.7-31.4) SECONDS D-Dimer, Quantitative 1.21 H (0.19-0.50) mg/L Sodium 139 (136-145) mEq/L Potassium 3.8 (3.5-5.1) mEq/L Chloride 105 (98-107) mEq/L Carbon Dioxide 24 (21-32) mEq/L Anion Gap 13.8 (5-15) BUN 43 H (7-18) mg/dL Creatinine 1.9 H (0.55-1.02) mg/dL Est Cr Clr Drug Dosing 25.07 mL/min Estimated GFR (MDRD) 27 (>60) mL/min BUN/Creatinine Ratio 22.6 H (14-18) Glucose 146 H (70-99) mg/dL Lactic Acid (0.4-2.0) mmol/L Calcium 8.7 (8.5-10.1) mg/dL Phosphorus (2.6-4.7) mg/dL Magnesium (1.8-2.4) mg/dL Total Bilirubin 0.6 (0.2-1.0) mg/dL AST 65 H (15-37) U/L ALT 95 H (14-59) U/L Alkaline Phosphatase 63 (46-116) U/L Troponin I < 0.017 (0.00-0.056) ng/mL C-Reactive Protein 0.4 (<1.0) mg/dL NT-Pro-B Natriuret Pep (0-125) pg/mL Total Protein 7.5 (6.4-8.2) g/dl Albumin 3.0 L (3.4-5.0) g/dl Globulin 4.5 gm/dL Albumin/Globulin Ratio 0.7 L (1-2) 02/01/21 02/01/21 02/02/21 Range/Units 15:28 15:28 06:50 WBC 5.32 (3.98-10.04) K/mm3 RBC 3.35 L (3.98-5.22) M/mm3 Hgb 9.2 L (11.2-15.7) gm/dl Hct 28.4 L (34.1-44.9) % MCV 84.8 (79.4-94.8) fl MCH 27.5 (25.6-32.2) pg MCHC 32.4 (32.2-35.5) g/dl RDW Std Deviation 42.3 (36.4-46.3) fL Plt Count 327 (182-369) K/mm3 MPV 9.6 (9.4-12.3) fl Neut % (Auto) 79.1 H (34.0-71.1) % Lymph % (Auto) 12.6 L (19.3-51.7) % [place] % (Auto) 7.7 (4.7-12.5) % Eos % (Auto) 0 L (0.7-5.8) Baso % (Auto) 0.0 L (0.1-1.2) % Neut # (Auto) 4.21 (1.56-6.13) K/mm3 Lymph # (Auto) 0.67 L (1.18-3.74) K/mm3 [place] # (Auto) 0.41 H (0.24-0.36) K/mm3 Eos # (Auto) 0.00 L (0.04-0.36) K/mm3 Baso # (Auto) 0.00 L (0.01-0.08) K/mm3 Manual Slide Review Normal smear PT (9.7-12.0) SECONDS INR APTT (21.7-31.4) SECONDS D-Dimer, Quantitative (0.19-0.50) mg/L Sodium (136-145) mEq/L Potassium (3.5-5.1) mEq/L Chloride (98-107) mEq/L Carbon Dioxide (21-32) mEq/L Anion Gap (5-15) BUN (7-18) mg/dL Creatinine (0.55-1.02) mg/dL Est Cr Clr Drug Dosing mL/min Estimated GFR (MDRD) (>60) mL/min BUN/Creatinine Ratio (14-18) Glucose (70-99) mg/dL Lactic Acid 1.5 (0.4-2.0) mmol/L Calcium (8.5-10.1) mg/dL Phosphorus (2.6-4.7) mg/dL Magnesium (1.8-2.4) mg/dL Total Bilirubin (0.2-1.0) mg/dL AST (15-37) U/L ALT (14-59) U/L Alkaline Phosphatase (46-116) U/L Troponin I (0.00-0.056) ng/mL C-Reactive Protein (<1.0) mg/dL NT-Pro-B Natriuret Pep 192 H (0-125) pg/mL Total Protein (6.4-8.2) g/dl Albumin (3.4-5.0) g/dl Globulin gm/dL Albumin/Globulin Ratio (1-2) 02/02/21 Range/Units 06:50 WBC (3.98-10.04) K/mm3 RBC (3.98-5.22) M/mm3 Hgb (11.2-15.7) gm/dl Hct (34.1-44.9) % MCV (79.4-94.8) fl MCH (25.6-32.2) pg MCHC (32.2-35.5) g/dl RDW Std Deviation (36.4-46.3) fL Plt Count (182-369) K/mm3 MPV (9.4-12.3) fl Neut % (Auto) (34.0-71.1) % Lymph % (Auto) (19.3-51.7) % [place] % (Auto) (4.7-12.5) % Eos % (Auto) (0.7-5.8) Baso % (Auto) (0.1-1.2) % Neut # (Auto) (1.56-6.13) K/mm3 Lymph # (Auto) (1.18-3.74) K/mm3 [place] # (Auto) (0.24-0.36) K/mm3 Eos # (Auto) (0.04-0.36) K/mm3 Baso # (Auto) (0.01-0.08) K/mm3 Manual Slide Review PT (9.7-12.0) SECONDS INR APTT (21.7-31.4) SECONDS D-Dimer, Quantitative (0.19-0.50) mg/L Sodium 141 (136-145) mEq/L Potassium 3.9 (3.5-5.1) mEq/L Chloride 107 (98-107) mEq/L Carbon Dioxide 24 (21-32) mEq/L Anion Gap 13.9 (5-15) BUN 39 H (7-18) mg/dL Creatinine 1.6 H (0.55-1.02) mg/dL Est Cr Clr Drug Dosing 29.77 mL/min Estimated GFR (MDRD) 33 (>60) mL/min BUN/Creatinine Ratio 24.4 H (14-18) Glucose 139 H (70-99) mg/dL Lactic Acid (0.4-2.0) mmol/L Calcium 8.8 (8.5-10.1) mg/dL Phosphorus 4.5 (2.6-4.7) mg/dL Magnesium 2.0 (1.8-2.4) mg/dL Total Bilirubin 0.7 (0.2-1.0) mg/dL AST 31 (15-37) U/L ALT 71 H (14-59) U/L Alkaline Phosphatase 59 (46-116) U/L Troponin I (0.00-0.056) ng/mL C-Reactive Protein 0.4 (<1.0) mg/dL NT-Pro-B Natriuret Pep (0-125) pg/mL Total Protein 7.0 (6.4-8.2) g/dl Albumin 2.7 L (3.4-5.0) g/dl Globulin 4.3 gm/dL Albumin/Globulin Ratio 0.6 L (1-2) Med Orders - Current: Current Medications Acetaminophen (Acetaminophen 325 Mg Tab) 650 mg PO Q4H PRN PRN Reason: Pain (Mild 1-3)/fever Artificial Tears (Lanolin/Mineral Oil/Pet Ophth (Systane Nighttime) Own Med ) 0 gm EYELF BID [facility] Last Admin: 02/02/21 09:13 Dose: 1 applic Documented by: Dexamethasone (Dexamethasone 4 Mg Tab) 6 mg PO DAILY [facility] Stop: 02/10/21 09:01 Last Admin: 02/02/21 09:13 Dose: 6 mg Documented by: Enoxaparin Sodium (Enoxaparin 30 Mg/0.3 Ml Syringe) 30 mg SUBCUT DAILY [facility] Last Admin: 02/02/21 09:13 Dose: 30 mg Documented by: Ondansetron HCl (Ondansetron 4 Mg/2 Ml Sdv) 4 mg IV Q6H PRN PRN Reason: Nausea/Vomiting Rosuvastatin Calcium (Rosuvastatin 10 Mg Tab) 20 mg PO BEDTIME [facility] Sodium Chloride (Sodium Chloride 0.9% 10 Ml Syringe) 10 ml FLUSH ASDIRECTED PRN PRN Reason: Keep Vein Open Last Admin: 02/01/21 17:35 Dose: 10 ml Documented by: Discontinued Medications Albuterol/Ipratropium (Albuterol/Ipratropium 3.0-0.5 Mg/3 Ml Neb Soln) 3 ml NEB ONETIME ONE Stop: 02/01/21 17:31 Last Admin: 02/01/21 17:41 Dose: 3 ml Documented by: Sodium Chloride (Normal Saline) 1,000 mls @ 1,000 mls/hr IV .BOLUS STA Stop: 02/01/21 18:26 Last Admin: 02/01/21 17:46 Dose: 1,000 mls/hr Documented by: Lactated Ringer's (Ringers, Lactated) 1,000 mls @ 75 mls/hr IV ASDIRECTED JASWANT Stop: 02/02/21 09:34 Last Admin: 02/01/21 22:30 Dose: 75 mls/hr Documented by: Rosuvastatin Calcium (Rosuvastatin 10 Mg Tab) 20 mg PO DAILY [facility] Last Admin: 02/02/21 09:35 Dose: Not Given Documented by: - Exam Quality Assessment: Supplemental Oxygen General: Alert, Oriented HEENT: Pupils Equal, Mucous Membr. Moist/[address] Neck: Supple Lungs: Normal Respiratory Effort, Crackles (Bibasilar) Cardiovascular: Regular Rate, Regular Rhythm GI/Abdominal Exam: Normal Bowel Sounds, Soft, Non-Tender, No Distention Extremities: Normal Inspection, Normal Range of Motion, Non-Tender, No Pedal Edema Skin: Warm, Dry, Intact Neurological: No New Focal Deficit Psy/Mental Status: Alert, Normal Affect, Normal Mood - Patient Data Lab Results Last 24 hrs: Laboratory Results - last 24 hr 02/01/21 02/01/21 02/01/21 Range/Units 15:28 15:28 15:28 WBC 8.40 (3.98-10.04) K/mm3 RBC 3.71 L (3.98-5.22) M/mm3 Hgb 10.4 L (11.2-15.7) gm/dl Hct 31.5 L (34.1-44.9) % MCV 84.9 (79.4-94.8) fl MCH 28.0 (25.6-32.2) pg MCHC 33.0 (32.2-35.5) g/dl RDW Std Deviation 41.9 (36.4-46.3) fL Plt Count 384 H D (182-369) K/mm3 MPV 9.3 L (9.4-12.3) fl Neut % (Auto) 87.6 H (34.0-71.1) % Lymph % (Auto) 6.2 L (19.3-51.7) % [place] % (Auto) 5.4 (4.7-12.5) % Eos % (Auto) 0 L (0.7-5.8) Baso % (Auto) 0.1 (0.1-1.2) % Neut # (Auto) 7.36 H (1.56-6.13) K/mm3 Lymph # (Auto) 0.52 L (1.18-3.74) K/mm3 [place] # (Auto) 0.45 H (0.24-0.36) K/mm3 Eos # (Auto) 0.00 L (0.04-0.36) K/mm3 Baso # (Auto) 0.01 (0.01-0.08) K/mm3 Manual Slide Review PT 10.0 (9.7-12.0) SECONDS INR < 0.93 APTT 24.5 (21.7-31.4) SECONDS D-Dimer, Quantitative 1.21 H (0.19-0.50) mg/L Sodium 139 (136-145) mEq/L Potassium 3.8 (3.5-5.1) mEq/L Chloride 105 (98-107) mEq/L Carbon Dioxide 24 (21-32) mEq/L Anion Gap 13.8 (5-15) BUN 43 H (7-18) mg/dL Creatinine 1.9 H (0.55-1.02) mg/dL Est Cr Clr Drug Dosing 25.07 mL/min Estimated GFR (MDRD) 27 (>60) mL/min BUN/Creatinine Ratio 22.6 H (14-18) Glucose 146 H (70-99) mg/dL Lactic Acid (0.4-2.0) mmol/L Calcium 8.7 (8.5-10.1) mg/dL Phosphorus (2.6-4.7) mg/dL Magnesium (1.8-2.4) mg/dL Total Bilirubin 0.6 (0.2-1.0) mg/dL AST 65 H (15-37) U/L ALT 95 H (14-59) U/L Alkaline Phosphatase 63 (46-116) U/L Troponin I < 0.017 (0.00-0.056) ng/mL C-Reactive Protein 0.4 (<1.0) mg/dL NT-Pro-B Natriuret Pep (0-125) pg/mL Total Protein 7.5 (6.4-8.2) g/dl Albumin 3.0 L (3.4-5.0) g/dl Globulin 4.5 gm/dL Albumin/Globulin Ratio 0.7 L (1-2) 02/01/21 02/01/21 02/02/21 Range/Units 15:28 15:28 06:50 WBC 5.32 (3.98-10.04) K/mm3 RBC 3.35 L (3.98-5.22) M/mm3 Hgb 9.2 L (11.2-15.7) gm/dl Hct 28.4 L (34.1-44.9) % MCV 84.8 (79.4-94.8) fl MCH 27.5 (25.6-32.2) pg MCHC 32.4 (32.2-35.5) g/dl RDW Std Deviation 42.3 (36.4-46.3) fL Plt Count 327 (182-369) K/mm3 MPV 9.6 (9.4-12.3) fl Neut % (Auto) 79.1 H (34.0-71.1) % Lymph % (Auto) 12.6 L (19.3-51.7) % [place] % (Auto) 7.7 (4.7-12.5) % Eos % (Auto) 0 L (0.7-5.8) Baso % (Auto) 0.0 L (0.1-1.2) % Neut # (Auto) 4.21 (1.56-6.13) K/mm3 Lymph # (Auto) 0.67 L (1.18-3.74) K/mm3 [place] # (Auto) 0.41 H (0.24-0.36) K/mm3 Eos # (Auto) 0.00 L (0.04-0.36) K/mm3 Baso # (Auto) 0.00 L (0.01-0.08) K/mm3 Manual Slide Review Normal smear PT (9.7-12.0) SECONDS INR APTT (21.7-31.4) SECONDS D-Dimer, Quantitative (0.19-0.50) mg/L Sodium (136-145) mEq/L Potassium (3.5-5.1) mEq/L Chloride (98-107) mEq/L Carbon Dioxide (21-32) mEq/L Anion Gap (5-15) BUN (7-18) mg/dL Creatinine (0.55-1.02) mg/dL Est Cr Clr Drug Dosing mL/min Estimated GFR (MDRD) (>60) mL/min BUN/Creatinine Ratio (14-18) Glucose (70-99) mg/dL Lactic Acid 1.5 (0.4-2.0) mmol/L Calcium (8.5-10.1) mg/dL Phosphorus (2.6-4.7) mg/dL Magnesium (1.8-2.4) mg/dL Total Bilirubin (0.2-1.0) mg/dL AST (15-37) U/L ALT (14-59) U/L Alkaline Phosphatase (46-116) U/L Troponin I (0.00-0.056) ng/mL C-Reactive Protein (<1.0) mg/dL NT-Pro-B Natriuret Pep 192 H (0-125) pg/mL Total Protein (6.4-8.2) g/dl Albumin (3.4-5.0) g/dl Globulin gm/dL Albumin/Globulin Ratio (1-2) 02/02/ Range/Units 06:50 WBC (3.98-10.04) K/mm3 RBC (3.98-5.22) M/mm3 Hgb (11.2-15.7) gm/dl Hct (34.1-44.9) % MCV (79.4-94.8) fl MCH (25.6-32.2) pg MCHC (32.2-35.5) g/dl RDW Std Deviation (36.4-46.3) fL Plt Count (182-369) K/mm3 MPV (9.4-12.3) fl Neut % (Auto) (34.0-71.1) % Lymph % (Auto) (19.3-51.7) % [place] % (Auto) (4.7-12.5) % Eos % (Auto) (0.7-5.8) Baso % (Auto) (0.1-1.2) % Neut # (Auto) (1.56-6.13) K/mm3 Lymph # (Auto) (1.18-3.74) K/mm3 [place] # (Auto) (0.24-0.36) K/mm3 Eos # (Auto) (0.04-0.36) K/mm3 Baso # (Auto) (0.01-0.08) K/mm3 Manual Slide Review PT (9.7-12.0) SECONDS INR APTT (21.7-31.4) SECONDS D-Dimer, Quantitative (0.19-0.50) mg/L Sodium 141 (136-145) mEq/L Potassium 3.9 (3.5-5.1) mEq/L Chloride 107 (98-107) mEq/L Carbon Dioxide 24 (21-32) mEq/L Anion Gap 13.9 (5-15) BUN 39 H (7-18) mg/dL Creatinine 1.6 H (0.55-1.02) mg/dL Est Cr Clr Drug Dosing 29.77 mL/min Estimated GFR (MDRD) 33 (>60) mL/min BUN/Creatinine Ratio 24.4 H (14-18) Glucose 139 H (70-99) mg/dL Lactic Acid (0.4-2.0) mmol/L Calcium 8.8 (8.5-10.1) mg/dL Phosphorus 4.5 (2.6-4.7) mg/dL Magnesium 2.0 (1.8-2.4) mg/dL Total Bilirubin 0.7 (0.2-1.0) mg/dL AST 31 (15-37) U/L ALT 71 H (14-59) U/L Alkaline Phosphatase 59 (46-116) U/L Troponin I (0.00-0.056) ng/mL C-Reactive Protein 0.4 (<1.0) mg/dL NT-Pro-B Natriuret Pep (0-125) pg/mL Total Protein 7.0 (6.4-8.2) g/dl Albumin 2.7 L (3.4-5.0) g/dl Globulin 4.3 gm/dL Albumin/Globulin Ratio 0.6 L (1-2) Result Diagrams: 02/02/21 06:50 02/02/21 06:50 Sepsis Event Note - Evaluation Sepsis Screening Result: No Definite Risk - Focused Exam Vital Signs: Vital Signs Temp Pulse Resp BP Pulse Ox Pulse Ox 02/02/21 09:43 91 L 02/02/21 07:38 97.9 F 70 24 H 141/73 H 02/02/21 06:40 93 L 02/02/21 02:12 97.9 F 60 18 99/62 93 L - Problem List & Annotations (1) Hypertension SNOMED Code(s): 19792394 Code(s): I10 - ESSENTIAL (PRIMARY) HYPERTENSION Status: Acute Current Visit: Yes (2) Acute renal insufficiency SNOMED Code(s): 744300940 Code(s): N28.9 - DISORDER OF KIDNEY AND URETER, UNSPECIFIED Status: Acute Current Visit: Yes (3) Pneumonia due to COVID-19 virus SNOMED Code(s): 724732386525280653 Code(s): U07.1 - COVID-19; J12.82 - PNEUMONIA DUE TO CORONAVIRUS DISEASE 2019 Status: Acute Current Visit: Yes - Problem List Review Problem List Initiated/Reviewed/Updated: Yes - My Orders Last 24 Hours: My Active Orders 02/01/21 15:28 PROCALCITONIN [REF] Routine 02/01/21 Dinner Regular Diet [DIET] 02/01/21 20:06 Oxygen Therapy [RC] PRN RT Incentive Spirometry [RC] ASDIRECTED Up ad Precious [RC] QSHIFT VTE/DVT Education [RC] DAILY Vital Signs [RC] ,,21,03 Acetaminophen [TylenoL] 650 mg PO Q4H PRN Ondansetron [Zofran] 4 mg IV Q6H PRN Isolation [COMM] Stat RT Acapella [RESPCARE] Routine Resuscitation Status Routine 02/01/21 20:08 Positioning, Patient [RC] ASDIRECTED 02/01/21 20:15 dexAMETHasone 6 mg PO DAILY 02/01/21 20:31 Pulse Oximetry [RC] CONTINUOUS 02/01/21 21:00 Lanolin/Min Oil/Petrolatum [Artificial Tears Ointment] 0 gm EYELF BID 02/02/21 09:00 Enoxaparin [Lovenox] 30 mg SUBCUT DAILY 02/02/21 21:00 Rosuvastatin [Crestor] 20 mg PO BEDTIME 02/03/21 05:11 C-REACTIVE PROTEIN [CHEM] AM CBC WITH AUTO DIFF [HEME] AM CMP [COMPREHENSIVE METABOLIC PN,CMP] [CHEM] AM DD [D-DIMER QUANTITATIVE] [COAG] AM MAGNESIUM [CHEM] AM PHOSPHORUS [CHEM] AM - Plan Plan:: 55-year-old female diagnosed with Covid 4 days ago and first developed symptoms 9 days ago return to the [facility] with shortness of breath, cough, and generalized weakness. COVID-19 pneumonia * On 2 L nasal cannula. * Started on dexamethasone 5 days ago * Renal function has improved, but patient would not likely benefit from remdesivir 10 days after symptom initiation. * Checks x-ray was stable from prior study on 01/28/2021. Consistent patchy areas of increased density seen within both lungs. * proBNP is mildly elevated at 192. Troponin is normal at less than 0.017. Elevated BNP is likely related to renal insufficiency. D-dimer 1.21 likely secondary to renal insufficiency Acute renal insufficiency * Initial BUN 43, creatinine 1.9, estimated GFR 27 * Current BUN 39, creatinine 1.6, estimated GFR 33 * Baseline creatinine 1.1 in June 2020 * Patient states she was started on lisinopril secondary to renal function last April * Lisinopril held Hypertension/hyperlipidemia * Home meds include lisinopril and rosuvastatin Plan * Admit to floor in isolation * FiO2 to keep SPO2 between 88 and 92% * Hold lisinopril * Continue rosuvastatin * No remdesivir secondary little benefit 10 days after initiation of symptoms and decreased GFR * Renally dose medications * Continue dexamethasone 6 mg daily * Encourage oral intake * Stop IV fluids * Follow CBC, CMP, mag, Phos, C-reactive protein, D-dimer * VTE prophylaxis with Lovenox. Pharmacy to dose renally * CODE STATUS: Full code
[2021-02-02] MEDS ORDERED: Albuterol 6.7 GM Inhaler INH PRN (20:12)
[2021-02-02] MEDS ORDERED: Albuterol/Ipratropium 3.0-0.5 MG/3 ML Neb Soln NEB PRN (20:13)
[2021-02-02] MEDS: Rosuvastatin 10 MG Tab PO SCH (20:48)
[2021-02-03] MEDS: Dexamethasone 4 MG Tab PO SCH (09:00)
[2021-02-03] MEDS: LANOLIN EYELF SCH ×2 (09:00→20:40)
[2021-02-03] MEDS: MINERAL OIL EYELF SCH ×2 (09:00→20:40)
[2021-02-03] MEDS: PETROLATUM EYELF SCH ×2 (09:00→20:40)
[2021-02-03] MEDS: Enoxaparin 30 MG/0.3 ML Syringe SUBCUT SCH (09:00)
--- NOTE | 2021-02-03 13:25 | PCM.EKG ---
#1 Interpretation EKG Date: 02/03/21 Time: 10:06 Rhythm: NSR Rate (Beats/Min): 68 [place]: Normal P-Wave: Present QRS: Normal (RSR prime in V1 and V2) ST-T: Normal QT: Normal
--- NOTE | 2021-02-03 13:42 | PCM.PN ---
- General Info Date of Service: 02/03/21 Admission Dx/Problem (Free Text): Admission Diagnosis/Problem Admission Diagnosis/Problem Pneumonia Subjective Update: 55-year-old female admitted with COVID-19, day 10 of symptoms. Elizabeth had an episode this morning where she felt diaphoretic and fatigued. Respiratory therapist happened to be in there at that time and her cardiac rhythm strip changed. Review of the rhythm strip shows that she went into a transient heidi ctional pattern with a heart rate in the 50s. There was no significant change in rate. Functional Status: Reports: Pain Controlled - Review of Systems General: Reports: Fatigue HEENT: Reports: No Symptoms Pulmonary: Reports: Shortness of Breath, Cough Cardiovascular: Reports: No Symptoms Gastrointestinal: Reports: No Symptoms Musculoskeletal: Reports: No Symptoms - Patient Data Vitals - Most Recent: Last Vital Signs Temp 98.8 F 02/03/21 12:26 Pulse 72 02/03/21 12:00 Resp 16 02/03/21 12:26 BP 113/86 02/03/21 12:26 Pulse Ox 95 02/03/21 12:00 Weight - Most Recent: 161 lb I&O - Last 24 Hours: Intake & Output 02/02/21 02/03/21 02/03/21 22:59 06:59 14:59 Intake Total 1260 400 240 Output Total 700 600 Balance 560 -200 240 Lab Results Last 24 Hours: Laboratory Results - last 24 hr 02/03/21 02/03/21 02/03/21 Range/Units 06:40 06:40 06:40 WBC 8.36 (3.98-10.04) K/mm3 RBC 3.40 L (3.98-5.22) M/mm3 Hgb 9.1 L (11.2-15.7) gm/dl Hct 28.9 L (34.1-44.9) % MCV 85.0 (79.4-94.8) fl MCH 26.8 (25.6-32.2) pg MCHC 31.5 L (32.2-35.5) g/dl RDW Std Deviation 42.4 (36.4-46.3) fL Plt Count 376 H (182-369) K/mm3 MPV 10.3 (9.4-12.3) fl Neut % (Auto) 69.5 (34.0-71.1) % Lymph % (Auto) 20.1 (19.3-51.7) % [place] % (Auto) 9.0 (4.7-12.5) % Eos % (Auto) 0 L (0.7-5.8) Baso % (Auto) 0.1 (0.1-1.2) % Neut # (Auto) 5.81 (1.56-6.13) K/mm3 Lymph # (Auto) 1.68 (1.18-3.74) K/mm3 [place] # (Auto) 0.75 H (0.24-0.36) K/mm3 Eos # (Auto) 0.00 L (0.04-0.36) K/mm3 Baso # (Auto) 0.01 (0.01-0.08) K/mm3 Manual Slide Review Normal smear D-Dimer, Quantitative 2.47 H (0.19-0.50) mg/L Sodium 142 (136-145) mEq/L Potassium 3.7 (3.5-5.1) mEq/L Chloride 109 H (98-107) mEq/L Carbon Dioxide 25 (21-32) mEq/L Anion Gap 11.7 (5-15) BUN 43 H (7-18) mg/dL Creatinine 1.7 H (0.55-1.02) mg/dL Est Cr Clr Drug Dosing 28.02 mL/min Estimated GFR (MDRD) 30 (>60) mL/min BUN/Creatinine Ratio 25.3 H (14-18) Glucose 94 (70-99) mg/dL Calcium 8.7 (8.5-10.1) mg/dL Phosphorus 3.0 (2.6-4.7) mg/dL Magnesium 1.7 L (1.8-2.4) mg/dL Total Bilirubin 0.6 (0.2-1.0) mg/dL AST 25 (15-37) U/L ALT 61 H (14-59) U/L Alkaline Phosphatase 48 (46-116) U/L Troponin I (0.00-0.056) ng/mL C-Reactive Protein <0.2 (<1.0) mg/dL Total Protein 6.5 (6.4-8.2) g/dl Albumin 2.5 L (3.4-5.0) g/dl Globulin 4.0 gm/dL Albumin/Globulin Ratio 0.6 L (1-2) 02/03/21 Range/Units 07:16 WBC (3.98-10.04) K/mm3 RBC (3.98-5.22) M/mm3 Hgb (11.2-15.7) gm/dl Hct (34.1-44.9) % MCV (79.4-94.8) fl MCH (25.6-32.2) pg MCHC (32.2-35.5) g/dl RDW Std Deviation (36.4-46.3) fL Plt Count (182-369) K/mm3 MPV (9.4-12.3) fl Neut % (Auto) (34.0-71.1) % Lymph % (Auto) (19.3-51.7) % [place] % (Auto) (4.7-12.5) % Eos % (Auto) (0.7-5.8) Baso % (Auto) (0.1-1.2) % Neut # (Auto) (1.56-6.13) K/mm3 Lymph # (Auto) (1.18-3.74) K/mm3 [place] # (Auto) (0.24-0.36) K/mm3 Eos # (Auto) (0.04-0.36) K/mm3 Baso # (Auto) (0.01-0.08) K/mm3 Manual Slide Review D-Dimer, Quantitative (0.19-0.50) mg/L Sodium (136-145) mEq/L Potassium (3.5-5.1) mEq/L Chloride (98-107) mEq/L Carbon Dioxide (21-32) mEq/L Anion Gap (5-15) BUN (7-18) mg/dL Creatinine (0.55-1.02) mg/dL Est Cr Clr Drug Dosing mL/min Estimated GFR (MDRD) (>60) mL/min BUN/Creatinine Ratio (14-18) Glucose (70-99) mg/dL Calcium (8.5-10.1) mg/dL Phosphorus (2.6-4.7) mg/dL Magnesium (1.8-2.4) mg/dL Total Bilirubin (0.2-1.0) mg/dL AST (15-37) U/L ALT (14-59) U/L Alkaline Phosphatase (46-116) U/L Troponin I < 0.017 (0.00-0.056) ng/mL C-Reactive Protein (<1.0) mg/dL Total Protein (6.4-8.2) g/dl Albumin (3.4-5.0) g/dl Globulin gm/dL Albumin/Globulin Ratio (1-2) Med Orders - Current: Current Medications Acetaminophen (Acetaminophen 325 Mg Tab) 650 mg PO Q4H PRN PRN Reason: Pain (Mild 1-3)/fever Albuterol (Albuterol 6.7 Gm Inhaler) 0 gm INH Q2H PRN PRN Reason: Shortness of Breath Albuterol/Ipratropium (Albuterol/Ipratropium 3.0-0.5 Mg/3 Ml Neb Soln) 3 ml NEB Q4HRRT PRN PRN Reason: Shortness of Breath Artificial Tears (Lanolin/Mineral Oil/Pet Ophth (Systane Nighttime) Own Med ) 0 gm EYELF BID [facility] Last Admin: 02/03/21 09:00 Dose: 1 applic Documented by: Dexamethasone (Dexamethasone 4 Mg Tab) 6 mg PO DAILY [facility] Stop: 02/10/21 09:01 Last Admin: 02/03/21 09:00 Dose: 6 mg Documented by: Enoxaparin Sodium (Enoxaparin 30 Mg/0.3 Ml Syringe) 30 mg SUBCUT DAILY [facility] Last Admin: 02/03/21 09:00 Dose: 30 mg Documented by: Ondansetron HCl (Ondansetron 4 Mg/2 Ml Sdv) 4 mg IV Q6H PRN PRN Reason: Nausea/Vomiting Rosuvastatin Calcium (Rosuvastatin 10 Mg Tab) 20 mg PO BEDTIME [facility] Last Admin: 02/02/21 20:48 Dose: 20 mg Documented by: Sodium Chloride (Sodium Chloride 0.9% 10 Ml Syringe) 10 ml FLUSH ASDIRECTED PRN PRN Reason: Keep Vein Open Last Admin: 02/01/21 17:35 Dose: 10 ml Documented by: Discontinued Medications Albuterol/Ipratropium (Albuterol/Ipratropium 3.0-0.5 Mg/3 Ml Neb Soln) 3 ml NEB ONETIME ONE Stop: 02/01/21 17:31 Last Admin: 02/01/21 17:41 Dose: 3 ml Documented by: Sodium Chloride (Normal Saline) 1,000 mls @ 1,000 mls/hr IV .BOLUS STA Stop: 02/01/21 18:26 Last Admin: 02/01/21 17:46 Dose: 1,000 mls/hr Documented by: Lactated Ringer's (Ringers, Lactated) 1,000 mls @ 75 mls/hr IV ASDIRECTED [facility]AS[facility] Stop: 02/02/21 09:34 Last Admin: 02/01/21 22:30 Dose: 75 mls/hr Documented by: Rosuvastatin Calcium (Rosuvastatin 10 Mg Tab) 20 mg PO DAILY [facility] Last Admin: 02/02/21 09:35 Dose: Not Given Documented by: - Exam Quality Assessment: Supplemental Oxygen General: Alert, Oriented HEENT: Pupils Equal, Mucous Membr. Moist/[place] Neck: Supple Lungs: Normal Respiratory Effort, Crackles, Rales Cardiovascular: Regular Rate, Regular Rhythm GI/Abdominal Exam: Normal Bowel Sounds, Soft, No Organomegaly, No Distention Extremities: Normal Inspection, Normal Range of Motion, Non-Tender, No Pedal Edema Skin: Warm, Dry, Intact Psy/Mental Status: Alert, Normal Affect, Normal Mood - Patient Data Lab Results Last 24 hrs: Laboratory Results - last 24 hr 02/03/21 02/03/21 02/03/21 Range/Units 06:40 06:40 06:40 WBC 8.36 (3.98-10.04) K/mm3 RBC 3.40 L (3.98-5.22) M/mm3 Hgb 9.1 L (11.2-15.7) gm/dl Hct 28.9 L (34.1-44.9) % MCV 85.0 (79.4-94.8) fl MCH 26.8 (25.6-32.2) pg MCHC 31.5 L (32.2-35.5) g/dl RDW Std Deviation 42.4 (36.4-46.3) fL Plt Count 376 H (182-369) K/mm3 MPV 10.3 (9.4-12.3) fl Neut % (Auto) 69.5 (34.0-71.1) % Lymph % (Auto) 20.1 (19.3-51.7) % [place] % (Auto) 9.0 (4.7-12.5) % Eos % (Auto) 0 L (0.7-5.8) Baso % (Auto) 0.1 (0.1-1.2) % Neut # (Auto) 5.81 (1.56-6.13) K/mm3 Lymph # (Auto) 1.68 (1.18-3.74) K/mm3 [place] # (Auto) 0.75 H (0.24-0.36) K/mm3 Eos # (Auto) 0.00 L (0.04-0.36) K/mm3 Baso # (Auto) 0.01 (0.01-0.08) K/mm3 Manual Slide Review Normal smear D-Dimer, Quantitative 2.47 H (0.19-0.50) mg/L Sodium 142 (136-145) mEq/L Potassium 3.7 (3.5-5.1) mEq/L Chloride 109 H (98-107) mEq/L Carbon Dioxide 25 (21-32) mEq/L Anion Gap 11.7 (5-15) BUN 43 H (7-18) mg/dL Creatinine 1.7 H (0.55-1.02) mg/dL Est Cr Clr Drug Dosing 28.02 mL/min Estimated GFR (MDRD) 30 (>60) mL/min BUN/Creatinine Ratio 25.3 H (14-18) Glucose 94 (70-99) mg/dL Calcium 8.7 (8.5-10.1) mg/dL Phosphorus 3.0 (2.6-4.7) mg/dL Magnesium 1.7 L (1.8-2.4) mg/dL Total Bilirubin 0.6 (0.2-1.0) mg/dL AST 25 (15-37) U/L ALT 61 H (14-59) U/L Alkaline Phosphatase 48 (46-116) U/L Troponin I (0.00-0.056) ng/mL C-Reactive Protein <0.2 (<1.0) mg/dL Total Protein 6.5 (6.4-8.2) g/dl Albumin 2.5 L (3.4-5.0) g/dl Globulin 4.0 gm/dL Albumin/Globulin Ratio 0.6 L (1-2) 02/03/21 Range/Units 07:16 WBC (3.98-10.04) K/mm3 RBC (3.98-5.22) M/mm3 Hgb (11.2-15.7) gm/dl Hct (34.1-44.9) % MCV (79.4-94.8) fl MCH (25.6-32.2) pg MCHC (32.2-35.5) g/dl RDW Std Deviation (36.4-46.3) fL Plt Count (182-369) K/mm3 MPV (9.4-12.3) fl Neut % (Auto) (34.0-71.1) % Lymph % (Auto) (19.3-51.7) % [place] % (Auto) (4.7-12.5) % Eos % (Auto) (0.7-5.8) Baso % (Auto) (0.1-1.2) % Neut # (Auto) (1.56-6.13) K/mm3 Lymph # (Auto) (1.18-3.74) K/mm3 [place] # (Auto) (0.24-0.36) K/mm3 Eos # (Auto) (0.04-0.36) K/mm3 Baso # (Auto) (0.01-0.08) K/mm3 Manual Slide Review D-Dimer, Quantitative (0.19-0.50) mg/L Sodium (136-145) mEq/L Potassium (3.5-5.1) mEq/L Chloride (98-107) mEq/L Carbon Dioxide (21-32) mEq/L Anion Gap (5-15) BUN (7-18) mg/dL Creatinine (0.55-1.02) mg/dL Est Cr Clr Drug Dosing mL/min Estimated GFR (MDRD) (>60) mL/min BUN/Creatinine Ratio (14-18) Glucose (70-99) mg/dL Calcium (8.5-10.1) mg/dL Phosphorus (2.6-4.7) mg/dL Magnesium (1.8-2.4) mg/dL Total Bilirubin (0.2-1.0) mg/dL AST (15-37) U/L ALT (14-59) U/L Alkaline Phosphatase (46-116) U/L Troponin I < 0.017 (0.00-0.056) ng/mL C-Reactive Protein (<1.0) mg/dL Total Protein (6.4-8.2) g/dl Albumin (3.4-5.0) g/dl Globulin gm/dL Albumin/Globulin Ratio (1-2) Result Diagrams: 02/03/21 06:40 02/03/21 06:40 Sepsis Event Note - Evaluation Sepsis Screening Result: No Definite Risk - Focused Exam Vital Signs: Vital Signs Temp Pulse Pulse Resp BP Pulse Ox Pulse Ox 02/03/21 12:26 98.8 F 16 113/86 02/03/21 12:00 72 95 02/03/21 10:12 96 02/03/21 09:03 93 L 02/03/21 07:43 98.2 F 16 107/71 02/03/21 05:34 97.9 F 68 20 118/78 90 L - Problem List & Annotations (1) Hypertension SNOMED Code(s): 94016895 Code(s): I10 - ESSENTIAL (PRIMARY) HYPERTENSION Status: Acute Current Visit: Yes (2) Acute renal insufficiency SNOMED Code(s): 100768719 Code(s): N28.9 - DISORDER OF KIDNEY AND URETER, UNSPECIFIED Status: Acute Current Visit: Yes (3) Pneumonia due to COVID-19 virus SNOMED Code(s): 504338101403625465 Code(s): U07.1 - COVID-19; J12.82 - PNEUMONIA DUE TO CORONAVIRUS DISEASE 2019 Status: Acute Current Visit: Yes - Problem List Review Problem List Initiated/Reviewed/Updated: Yes - My Orders Last 24 Hours: My Active Orders 02/02/21 20:12 Albuterol [Proventil HFA] See Dose Instructions INH Q2H PRN 02/02/21 20:13 Albuterol/Ipratropium [DuoNeb 3.0-0.5 MG/3 ML] 3 ml NEB Q4HRRT PRN 02/02/21 20:14 RT Aerosol Therapy [RC] ASDIRECTED 02/02/21 21:00 Rosuvastatin [Crestor] 20 mg PO BEDTIME 02/03/21 10:05 EKG 12 Lead [EK] Stat - Plan Plan:: 55-year-old female diagnosed with Covid 4 days ago and first developed symptoms 9 days ago return to the [facility] with shortness of breath, cough, and generalized weakness. COVID-19 pneumonia * On 2 L nasal cannula. No change * Started on dexamethasone 5 days ago * Renal function has improved, but patient would not likely benefit from remdesivir 10 days after symptom initiation. * Checks x-ray was stable from prior study on 01/28/2021. Consistent patchy areas of increased density seen within both lungs. * proBNP is mildly elevated at 192. Troponin is normal at less than 0.017. Elevated BNP is likely related to renal insufficiency. D-dimer 1.21 likely secondary to renal insufficiency * CRP less than 0.2 * D-dimer increased to 2.5 * Procalcitonin less than 0.02 Episode of junctional rhythm * No EKG changes * Troponin negative * Likely not clinically significant * Will continue to monitor on telemetry Acute renal insufficiencyimproved * Initial BUN 43, creatinine 1.9, estimated GFR 27 * Current BUN forty-three, creatinine 1.7, estimated GFR 30 * Baseline creatinine 1.1 in June 2020 * Patient states she was started on lisinopril secondary to renal function last April * Lisinopril held * No significant change in renal function overnight. Hypertension/hyperlipidemia * Home meds include lisinopril and rosuvastatin Plan * Admit to floor in isolation * FiO2 to keep SPO2 between 88 and 92% * Hold lisinopril * Continue rosuvastatin * No remdesivir secondary little benefit 10 days after initiation of symptoms and decreased GFR * Renally dose medications * Continue dexamethasone 6 mg daily * Encourage oral intake * Consider CTA if oxygenation status worsens. She is on Lovenox. * Follow CBC, CMP, mag, Phos, C-reactive protein, D-dimer * VTE prophylaxis with Lovenox. Pharmacy to dose renally * CODE STATUS: Full code
[2021-02-03] MEDS: Rosuvastatin 10 MG Tab PO SCH (20:40)
[2021-02-04] MEDS: MINERAL OIL EYELF SCH ×2 (09:31→21:07)
[2021-02-04] MEDS: PETROLATUM EYELF SCH ×2 (09:31→21:07)
[2021-02-04] MEDS: LANOLIN EYELF SCH ×2 (09:31→21:07)
[2021-02-04] MEDS: Dexamethasone 4 MG Tab PO SCH (09:33)
[2021-02-04] MEDS: Enoxaparin 30 MG/0.3 ML Syringe SUBCUT SCH (09:35)
--- NOTE | 2021-02-04 11:22 | PCM.PN ---
- General Info Date of Service: 02/04/21 Admission Dx/Problem (Free Text): Admission Diagnosis/Problem Admission Diagnosis/Problem Pneumonia Subjective Update: 55-year-old female admitted with COVID-19, day 11 of symptoms. Patient is improving. She is on room air at this time. Shortness of breath has improved and appetite is starting to improve. Functional Status: Reports: Pain Controlled - Review of Systems General: Reports: No Symptoms HEENT: Reports: No Symptoms Pulmonary: Reports: No Symptoms Cardiovascular: Reports: No Symptoms - Patient Data Vitals - Most Recent: Last Vital Signs Temp 98.1 F 02/04/21 07:47 Pulse 68 02/04/21 07:47 Resp 16 02/04/21 07:47 BP 124/69 02/04/21 07:47 Pulse Ox 92 L 02/04/21 10:22 Weight - Most Recent: 162 lb 4.8 oz I&O - Last 24 Hours: Intake & Output 02/03/21 02/04/21 02/04/21 22:59 06:59 14:59 Intake Total 770 600 Output Total 750 1050 Balance 20 -450 Lab Results Last 24 Hours: Laboratory Results - last 24 hr 02/03/21 Range/Units 07:16 Troponin I < 0.017 (0.00-0.056) ng/mL Med Orders - Current: Current Medications Acetaminophen (Acetaminophen 325 Mg Tab) 650 mg PO Q4H PRN PRN Reason: Pain (Mild 1-3)/fever Albuterol (Albuterol 6.7 Gm Inhaler) 0 gm INH Q2H PRN PRN Reason: Shortness of Breath Albuterol/Ipratropium (Albuterol/Ipratropium 3.0-0.5 Mg/3 Ml Neb Soln) 3 ml NEB Q4HRRT PRN PRN Reason: Shortness of Breath Artificial Tears (Lanolin/Mineral Oil/Pet Ophth (Systane Nighttime) Own Med ) 0 gm EYELF BID [facility] Last Admin: 02/04/21 09:31 Dose: 1 applic Documented by: Dexamethasone (Dexamethasone 4 Mg Tab) 6 mg PO DAILY [facility] Stop: 02/10/21 09:01 Last Admin: 02/04/21 09:33 Dose: 6 mg Documented by: Enoxaparin Sodium (Enoxaparin 30 Mg/0.3 Ml Syringe) 30 mg SUBCUT DAILY [facility] Last Admin: 02/04/21 09:35 Dose: 30 mg Documented by: Ondansetron HCl (Ondansetron 4 Mg/2 Ml Sdv) 4 mg IV Q6H PRN PRN Reason: Nausea/Vomiting Rosuvastatin Calcium (Rosuvastatin 10 Mg Tab) 20 mg PO BEDTIME [facility] Last Admin: 02/03/21 20:40 Dose: 20 mg Documented by: Sodium Chloride (Sodium Chloride 0.9% 10 Ml Syringe) 10 ml FLUSH ASDIRECTED PRN PRN Reason: Keep Vein Open Last Admin: 02/01/21 17:35 Dose: 10 ml Documented by: Discontinued Medications Albuterol/Ipratropium (Albuterol/Ipratropium 3.0-0.5 Mg/3 Ml Neb Soln) 3 ml NEB ONETIME ONE Stop: 02/01/21 17:31 Last Admin: 02/01/21 17:41 Dose: 3 ml Documented by: Sodium Chloride (Normal Saline) 1,000 mls @ 1,000 mls/hr IV .BOLUS STA Stop: 02/01/21 18:26 Last Admin: 02/01/21 17:46 Dose: 1,000 mls/hr Documented by: Lactated Ringer's (Ringers, Lactated) 1,000 mls @ 75 mls/hr IV ASDIRECTED [facility] Stop: 02/02/21 09:34 Last Admin: 02/01/21 22:30 Dose: 75 mls/hr Documented by: Rosuvastatin Calcium (Rosuvastatin 10 Mg Tab) 20 mg PO DAILY [facility] Last Admin: 02/02/21 09:35 Dose: Not Given Documented by: - Exam Quality Assessment: No: Supplemental Oxygen General: Alert, Oriented HEENT: No: Pupils Equal Neck: Supple Lungs: Normal Respiratory Effort, Crackles (Bibasilar and midlung monet) Cardiovascular: Regular Rate, Regular Rhythm GI/Abdominal Exam: Normal Bowel Sounds, Soft, Non-Tender, No Distention Extremities: Normal Inspection, Normal Range of Motion, No Pedal Edema Psy/Mental Status: Alert, Normal Affect, Normal Mood - Patient Data Lab Results Last 24 hrs: Laboratory Results - last 24 hr 02/03/21 Range/Units 07:16 Troponin I < 0.017 (0.00-0.056) ng/mL Result Diagrams: 02/03/21 06:40 02/03/21 06:40 Sepsis Event Note - Evaluation Sepsis Screening Result: No Definite Risk - Focused Exam Vital Signs: Vital Signs Temp Pulse Resp BP Pulse Ox Pulse Ox Pulse Ox 02/04/21 10:22 92 L 02/04/21 08:58 96 02/04/21 07:47 98.1 F 68 16 124/69 02/04/21 02:55 97.3 F 62 14 129/69 92 L - Problem List & Annotations (1) Hypertension SNOMED Code(s): 06700383 Code(s): I10 - ESSENTIAL (PRIMARY) HYPERTENSION Status: Acute Current Visit: Yes (2) Acute renal insufficiency SNOMED Code(s): 821093032 Code(s): N28.9 - DISORDER OF KIDNEY AND URETER, UNSPECIFIED Status: Acute Current Visit: Yes (3) Pneumonia due to COVID-19 virus SNOMED Code(s): 862899980068664043 Code(s): U07.1 - COVID-19; J12.82 - PNEUMONIA DUE TO CORONAVIRUS DISEASE 2019 Status: Acute Current Visit: Yes - Problem List Review Problem List Initiated/Reviewed/Updated: Yes - Plan Plan:: 55-year-old female diagnosed with Covid 4 days ago prior to admission and first developed symptoms 9 days prior to admission COVID-19 pneumonia * On room air * On dexamethasone * Renal function has improved, but patient would not likely benefit from remdesivir 10 days after symptom initiation. * Checks x-ray was stable from prior study on 01/28/2021. Consistent patchy areas of increased density seen within both lungs. * proBNP is mildly elevated at 192. Troponin is normal at less than 0.017. Elevated BNP is likely related to renal insufficiency. D-dimer 1.21 likely secondary to renal insufficiency * CRP less than 0.2 * D-dimer increased to 2.5 * Procalcitonin less than 0.02 Episode of junctional rhythmsingle episode * No EKG changes * Troponin negative * Likely not clinically significant * Will continue to monitor on telemetry Acute renal insufficiencyimproved * Initial BUN 43, creatinine 1.9, estimated GFR 27 * Current BUN forty-three, creatinine 1.7, estimated GFR 30 * Baseline creatinine 1.1 in June 2020 * Patient states she was started on lisinopril secondary to renal function last April * Lisinopril held * No significant change in renal function overnight. Hypertension/hyperlipidemia * Home meds include lisinopril and rosuvastatin Plan * Admit to floor in isolation * FiO2 to keep SPO2 between 88 and 92% * Hold lisinopril * Continue rosuvastatin * No remdesivir secondary little benefit 10 days after initiation of symptoms and decreased GFR * Renally dose medications * Continue dexamethasone 6 mg daily * Encourage oral intake * Consider CTA if oxygenation status worsens. She is on Lovenox. * Follow CBC, CMP, mag, Phos, C-reactive protein, D-dimer * VTE prophylaxis with Lovenox. Pharmacy to dose renally * CODE STATUS: Full code
[2021-02-04] MEDS: Rosuvastatin 10 MG Tab PO SCH (21:08)
[2021-02-05] MEDS: Dexamethasone 4 MG Tab PO SCH (09:27)
[2021-02-05] MEDS: LANOLIN EYELF SCH (09:28)
[2021-02-05] MEDS: Enoxaparin 30 MG/0.3 ML Syringe SUBCUT SCH (09:28)
[2021-02-05] MEDS: PETROLATUM EYELF SCH (09:28)
[2021-02-05] MEDS: MINERAL OIL EYELF SCH (09:28)
--- NOTE | 2021-02-05 13:32 | PCM.DCSUM1 ---
Discharge Summary - Hospital Course HPI Initial Comments: 65-year-old female with increasing shortness of breath, cough, and generalized weakness over the last 9 days. She states that on Saturday she was seen in the emergency department and there were no beds available in the hospital. The next day she did feel a little bit better and went went home on oxygen from the emergency department. She was given dexamethasone and remdesivir in the emergency department. She went home on dexamethasone and O2 and today return to the emergency department at the urging of her daughter for recheck. It was noted that her renal function did worsen since Saturday and her GFR is now 27 with a creatinine of 1.9. Patient was given 1 L in the IV, but unfortunately she did not get the whole liter because of infiltration of the IV, per patient. She has decreased appetite. She denies any fever or chills. She has a history of hypertension and is on an ELICIA inhibitor. Assessment/Plan Comment:: 65-year-old female diagnosed with Covid 4 days ago and first developed symptoms 9 days ago return to the emerge department with shortness of breath, cough, and generalized weakness. COVID-19 pneumonia * Has been on 2 L nasal cannula at home since Saturday, 3 days prior to admission * Started on dexamethasone 4 days ago * Unable to give remdesivir secondary to renal function * Checks x-ray was stable from prior study on 01/28/2021. Consistent patchy areas of increased density seen within both lungs. * proBNP is mildly elevated at 192. Troponin is normal at less than 0.017. Elevated BNP is likely related to renal insufficiency. D-dimer 1.21 likely secondary to renal insufficiency Acute renal insufficiency * BUN 43, creatinine 1.9, estimated GFR 27 * Baseline creatinine 1.1 in June 2020 * Patient states she was started on lisinopril secondary to renal function last April Hypertension/hyperlipidemia * Home meds include lisinopril and rosuvastatin Plan * Admit to floor in isolation * FiO2 to keep SPO2 between 88 and 92% * Stop lisinopril * Continue rosuvastatin * No remdesivir secondary to renal function * Renally dose medications * Continue dexamethasone 6 mg daily * Encourage oral intake * LR at 75 mL/h for a total of 1000 mL * Follow CBC, CMP, mag, Phos, C-reactive protein, D-dimer * VTE prophylaxis with Lovenox. Pharmacy to dose renally * CODE STATUS: Full code Diagnosis: Stroke: No - Discharge Data Discharge Date: 02/05/21 Discharge Disposition: Home, Self-Care 01 Condition: Good - Referral to Home Health Primary Care Physician: Eduarda Marin NP - Discharge Diagnosis/Problem(s) (1) Hypertension SNOMED Code(s): 97926272 ICD Code: I10 - ESSENTIAL (PRIMARY) HYPERTENSION Status: Acute Current Visit: Yes (2) Acute renal insufficiency SNOMED Code(s): 409303462 ICD Code: N28.9 - DISORDER OF KIDNEY AND URETER, UNSPECIFIED Status: Acute Current Visit: Yes (3) Pneumonia due to COVID-19 virus SNOMED Code(s): 267111886828898632 ICD Code: U07.1 - COVID-19; J12.82 - PNEUMONIA DUE TO CORONAVIRUS DISEASE 2019 Status: Acute Current Visit: Yes - Patient Summary/Data Hospital Course: Patient was admitted with COVID-19 pneumonia and acute renal insufficiency. Patient was started on dexamethasone and not started on remdesivir secondary to renal function. Renal function did improve over the course of the hospitalization, but still remains poor with an estimated GFR of 33 and a creatinine of 1.6. Patient has been on dexamethasone. She will be discharged home on room air. She will not need anymore dexamethasone. She will follow up with her primary care provider in regards to her renal insufficiency. - Patient Instructions Diet: Heart Healthy Diet, Usual Diet as Tolerated Driving: May Drive Today Showering/Bathing: May Shower Notify Provider of: Fever, Increased Pain, Nausea and/or Vomiting Other/Special Instructions: Please follow-up with your primary care provider within 1 week. Your kidney function continues to be abnormal, which he stated was a chronic condition for you, and I would like you to follow-up with your primary care provider. I have stopped your lisinopril for now, but you may benefit from restarting it at your primary care visit. - Discharge Plan *PRESCRIPTION DRUG MONITORING PROGRAM REVIEWED*: No *COPY OF PRESCRIPTION DRUG MONITORING REPORT IN PATIENT CATHERINE: No Home Medications: Home Meds Rosuvastatin [Crestor] 20 mg PO DAILY 05/25/20 [History] Mineral Oil/Petrolatum,White [Systane Nighttime Eye Ointment] 1 applic EYELF BID 02/01/21 [History] Patient Handouts: COVID-19 Frequently Asked Questions, COVID-19, 10 Things You Can Do to Manage Your COVID-19 Symptoms at Home - [facility] [place] (11/18/2020), Home Oxygen Use, Adult, Sepsis, Self Care, Adult Forms: ED Department Discharge Referrals: Eduarda Marin, [employer] [Primary Care Provider] - - Discharge Summary/Plan Comment DC Time >30 min.: No Total # of Minutes for Discharge Time: 25 minutes - General Info Date of Service: 02/05/21 Admission Dx/Problem (Free Text: Admission Diagnosis/Problem Admission Diagnosis/Problem Pneumonia Subjective Update: Patient denies any shortness of breath. Still has a dry cough. Overall she is feeling well and feels she is ready to go home. Functional Status: Reports: Pain Controlled - Review of Systems General: Reports: No Symptoms HEENT: Reports: No Symptoms Pulmonary: Reports: Cough Cardiovascular: Reports: No Symptoms Gastrointestinal: Reports: No Symptoms Musculoskeletal: Reports: No Symptoms - Patient Data Vitals - Most Recent: Last Vital Signs Temp 98.1 F 02/05/21 09:24 Pulse 69 02/05/21 09:24 Resp 18 02/05/21 09:24 BP 108/69 02/05/21 09:24 Pulse Ox 92 L 02/05/21 09:24 Weight - Most Recent: 161 lb 3.2 oz I&O - Last 24 hours: Intake & Output 02/04/21 02/05/21 02/05/21 22:59 06:59 14:59 Intake Total 840 500 200 Output Total 600 950 Balance 240 -450 200 Lab Results - Last 24 hrs: Laboratory Results - last 24 hr 02/05/21 02/05/21 Range/Units 05:51 05:51 WBC 8.00 (3.98-10.04) K/mm3 RBC 3.42 L (3.98-5.22) M/mm3 Hgb 9.4 L (11.2-15.7) gm/dl Hct 29.3 L (34.1-44.9) % MCV 85.7 (79.4-94.8) fl MCH 27.5 (25.6-32.2) pg MCHC 32.1 L (32.2-35.5) g/dl RDW Std Deviation 42.8 (36.4-46.3) fL Plt Count 445 H (182-369) K/mm3 MPV 10.6 (9.4-12.3) fl Neut % (Auto) 64.4 (34.0-71.1) % Lymph % (Auto) 23.3 (19.3-51.7) % [place] % (Auto) 8.1 (4.7-12.5) % Eos % (Auto) 0.6 L (0.7-5.8) Baso % (Auto) 0.3 (0.1-1.2) % Neut # (Auto) 5.16 (1.56-6.13) K/mm3 Lymph # (Auto) 1.86 (1.18-3.74) K/mm3 [place] # (Auto) 0.65 H (0.24-0.36) K/mm3 Eos # (Auto) 0.05 (0.04-0.36) K/mm3 Baso # (Auto) 0.02 (0.01-0.08) K/mm3 Manual Slide Review Abnormal smear Sodium 140 (136-145) mEq/L Potassium 3.8 (3.5-5.1) mEq/L Chloride 107 (98-107) mEq/L Carbon Dioxide 25 (21-32) mEq/L Anion Gap 11.8 (5-15) BUN 40 H (7-18) mg/dL Creatinine 1.6 H (0.55-1.02) mg/dL Est Cr Clr Drug Dosing 29.77 mL/min Estimated GFR (MDRD) 33 (>60) mL/min BUN/Creatinine Ratio 25.0 H (14-18) Glucose 95 (70-99) mg/dL Calcium 8.8 (8.5-10.1) mg/dL Phosphorus 3.9 (2.6-4.7) mg/dL Magnesium 1.9 (1.8-2.4) mg/dL Total Bilirubin 0.7 (0.2-1.0) mg/dL AST 20 (15-37) U/L ALT 60 H (14-59) U/L Alkaline Phosphatase 54 (46-116) U/L C-Reactive Protein 0.5 (<1.0) mg/dL Total Protein 7.1 (6.4-8.2) g/dl Albumin 2.7 L (3.4-5.0) g/dl Globulin 4.4 gm/dL Albumin/Globulin Ratio 0.6 L (1-2) Med Orders - Current: Current Medications Acetaminophen (Acetaminophen 325 Mg Tab) 650 mg PO Q4H PRN PRN Reason: Pain (Mild 1-3)/fever Albuterol (Albuterol 6.7 Gm Inhaler) 0 gm INH Q2H PRN PRN Reason: Shortness of Breath Albuterol/Ipratropium (Albuterol/Ipratropium 3.0-0.5 Mg/3 Ml Neb Soln) 3 ml NEB Q4HRRT PRN PRN Reason: Shortness of Breath Artificial Tears (Lanolin/Mineral Oil/Pet Ophth (Systane Nighttime) Own Med ) 0 gm EYELF BID [facility] Last Admin: 02/05/21 09:28 Dose: 1 applic Documented by: Dexamethasone (Dexamethasone 4 Mg Tab) 6 mg PO DAILY [facility] Stop: 02/10/21 09:01 Last Admin: 02/05/21 09:27 Dose: 6 mg Documented by: Enoxaparin Sodium (Enoxaparin 30 Mg/0.3 Ml Syringe) 30 mg SUBCUT DAILY [facility] Last Admin: 02/05/21 09:28 Dose: 30 mg Documented by: Ondansetron HCl (Ondansetron 4 Mg/2 Ml Sdv) 4 mg IV Q6H PRN PRN Reason: Nausea/Vomiting Rosuvastatin Calcium (Rosuvastatin 10 Mg Tab) 20 mg PO BEDTIME [facility] Last Admin: 02/04/21 21:08 Dose: 20 mg Documented by: Sodium Chloride (Sodium Chloride 0.9% 10 Ml Syringe) 10 ml FLUSH ASDIRECTED PRN PRN Reason: Keep Vein Open Last Admin: 02/01/21 17:35 Dose: 10 ml Documented by: Discontinued Medications Albuterol/Ipratropium (Albuterol/Ipratropium 3.0-0.5 Mg/3 Ml Neb Soln) 3 ml NEB ONETIME ONE Stop: 02/01/21 17:31 Last Admin: 02/01/21 17:41 Dose: 3 ml Documented by: Sodium Chloride (Normal Saline) 1,000 mls @ 1,000 mls/hr IV .BOLUS STA Stop: 02/01/21 18:26 Last Admin: 02/01/21 17:46 Dose: 1,000 mls/hr Documented by: Lactated Ringer's (Ringers, Lactated) 1,000 mls @ 75 mls/hr IV ASDIRECTED [facility] Stop: 02/02/21 09:34 Last Admin: 02/01/21 22:30 Dose: 75 mls/hr Documented by: Rosuvastatin Calcium (Rosuvastatin 10 Mg Tab) 20 mg PO DAILY [facility] Last Admin: 02/02/21 09:35 Dose: Not Given Documented by: - Exam Quality Assessment: Denies: Supplemental Oxygen General: Reports: Alert, Oriented HEENT: Denies: Pupils Equal Neck: Reports: Supple Lungs: Reports: Normal Respiratory Effort, Crackles (Minimal bibasilar crackles) Cardiovascular: Reports: Regular Rate, Regular Rhythm GI/Abdominal Exam: Normal Bowel Sounds, Soft, Non-Tender, No Distention Extremities: Normal Inspection, No Pedal Edema, Normal Capillary Refill Skin: Reports: Warm, Dry, Intact Psy/Mental Status: Reports: Alert, Normal Affect, Normal Mood
== END 2021-02-05 14:26 | disposition home or self-care (01) | DRG 137 ==
LOC: SUPCPDRO 13:51 → JD.ED 13:51 → JD.MS 17:54
PROVIDERS: ADMIT Family Medicine; ATTEND Family Medicine
PROC: 3E0DX3Z Introduction of Anti-inflammatory into Mouth and Pharynx, External Approach (ICD-10-PCS; principal; 2021-02-01)
PROC: 8E0ZXY6 Isolation (ICD-10-PCS; principal; 2021-02-01)
DX: U07.1 COVID-19 (principal); J12.82 Pneumonia due to coronavirus disease 2019; N28.9 Disorder of kidney and ureter, unspecified; I10 Essential (primary) hypertension; E78.5 Hyperlipidemia, unspecified; E78.00 Pure hypercholesterolemia, unspecified; Z98.49 Cataract extraction status, unspecified eye; Z86.16 Personal history of COVID-19; Z79.899 Other long term (current) drug therapy
CPT/HCPCS: 36415; 71045; 71045-26; 80053; 83605; 83735; 83880; 84100; 84145; 84484; 85025; 85379; 85610; 85730; 86140; 93005; 94640; 94667; 94668; 94762; 99285-25; A9270-GY; J1650; J7030; J7120; J7620-GY; J8540